=== PATIENT | female | born 1955 | race Caucasian/White ===

== ENCOUNTER 2017-11-15 12:56 | Outpatient (CLI) | payer OTHER ==
--- NOTE | 2017-11-15 17:34 | MRI ---
THORACIC SPINE MRI WITHOUT CONTRAST: Date: 11/15/17 HISTORY: Thoracolumbar fracture with pain. Follow-up. Fracture occurred 2 years ago. Multiple falls. COMPARISON: None. TECHNIQUE: Thoracic spine MRI is performed without intravenous Gadolinium administration. Multisequential, multi planar imaging is performed. FINDINGS: Appropriate T1 marrow signal intensity of thoracic vertebra. Thoracic spine vertebral body height is maintained. There is no evidence of an acute thoracic spine fracture. No evidence of a remote thoraci c spine fracture. There is mild loss of vertebral body height at L1 suggesting a chronic fracture. Mild retropulsion. Appropriate signal intensity of the visualized mediastinal structures and lung parenchyma. Appropriat e signal intensity of the visualized solid organs. The thoracic cord has an overall normal size and signal intensity. No cord expansion. No cord malacia or atrophy. No T2 hyperintensity of the cord. Conus medullaris terminates beyond the upper aspect of L1. Throughout the thoracic spine, there is no high grade central canal stenosis. Neural foramina are pat ent. IMPRESSION: 1. No acute or remote thoracic spine fracture. 2. Mild compression fracture involving L1, chronic. POS: [facility]
== END 2017-11-15 12:57 | disposition home or self-care (01) ==
LOC: TBSIIMAG 12:56
PROVIDERS: ATTEND Neurological Surgery
DX: S22.009A Unspecified fracture of unspecified thoracic vertebra, initial encounter for closed fracture (principal); S32.009A Unspecified fracture of unspecified lumbar vertebra, initial encounter for closed fracture
CPT/HCPCS: 72146

== ENCOUNTER 2018-02-01 07:57 | Outpatient (CLI) | payer OTHER ==
[2018-02-01] MEDS ORDERED: ISOVUE-370 76%-LOCM 1 ML ONE (11:09)
== END 2018-02-01 07:58 | disposition home or self-care (01) ==
LOC: BICCT 07:57
PROVIDERS: ATTEND Surgery
DX: I72.8 Aneurysm of other specified arteries (principal); K76.0 Fatty (change of) liver, not elsewhere classified; K86.89 Other specified diseases of pancreas
CPT/HCPCS: 74175

== ENCOUNTER 2018-04-09 07:54 | Day surgery (SDC) | payer OTHER ==
[2018-04-06 12:04] VITALS: BMI 18.1
[2018-04-09 08:56] LABS: Hemoglobin 14.9 g/dL (12.0-16.0); Mean Corpuscular HGB CONC 33.5 g/dL (32.0-36.0); Mean Corpuscular Hemoglobin 34.5 pg (27.0-31.0); Mean Platelet Volume 6.8 fL (7.4-10.4); Platelet Count 333 thou/uL (130-400); RBC Distribution Width 10.9 % (11.5-14.5); Red Blood Cell (RBC) Count 4.31 mill/uL (4.20-5.40); White Blood Cell (WBC) Count 6.2 thou/uL (4.8-10.8)
[2018-04-09] MEDS ORDERED: CEFAZOLIN/Water 2 GM/20 ML SYRINGE ONE (09:06)
[2018-04-09 09:29] LABS: Anion Gap 20 mmol/L (10-20); BUN (Urea Nitrogen) 9 mg/dL (9.8-20.1); Calc. Creatinine Clearance 68 mL/min (70-130); Calcium 9.6 mg/dL (7.8-10.44); Carbon Dioxide 22 mmol/L (23-31); Chloride 101 mmol/L (98-107); Estimated GFR-MDRD 82; Glucose 108 mg/dL (80-115); Potassium 4.1 mmol/L (3.5-5.1); Sodium 139 mmol/L (136-145)
[2018-04-09] MEDS ORDERED: Sodium Chloride 0.9% 10 ML ONE (09:50)
[2018-04-09] MEDS ORDERED: Fentanyl 250 MCG/5 ML VIAL ONE (09:55)
[2018-04-09] MEDS ORDERED: SUGAMMADEX SODIUM 200 MG/2 ML VIAL ONE (11:06)
--- NOTE | 2018-04-09 11:09 | OP ---
DATE OF PROCEDURE: 04/09/2018 SURGEON: Zachary Elias M.D. TREATMENT TECHNICIAN: Nehemiah Reyes PA-C PROCEDURES: Anterior cervical discectomy C5-6 and C6-7, interbody arthrodesis, intravertebral biomec hanical device, local morselized autograft, demineralized bone matrix, anterior titanium instrumentat ion C5-6 and C6-7. PROCEDURE IN DETAIL: The patient was brought to the operating room and intubated. She was positione d supine, head in modest extension on a gel-filled donut. Incision was made in the right precervical area and dissecting medial to the sternocleidomastoid muscle. We identified the anterior cervical s pine and our level was confirmed by x-ray. We debrided anterior osteophytes, placed distraction acro ss the disc spaces, and completely decompressed the intravertebral discs. The bony endplates were de corticated for the purpose of arthrodesis and appropriately sized intravertebral biomechanical PEEK d evice was brought into the field, filled with demineralized bone matrix and local morselized autograf t, and tapped into place securely at C5-6 and C6-7. Next, an anterior plate was brought into the fie ld and secured to C5, C6, and C7 using two 14 mm screws at each level. The wound was then extensivel y irrigated, immaculate hemostasis was secured, and the wound was closed in anatomic layers.
[2018-04-09] MEDS ORDERED: Fentanyl 100 MCG/2 ML VIAL ONE ×2 (11:26→11:45)
[2018-04-09] MEDS ORDERED: Morphine 4 MG/ML VIAL ONE ×2 (11:47→13:09)
[2018-04-09] MEDS ORDERED: HYDROcodone/Acetaminophen 5/325 mg Tablet ONE (14:18)
--- NOTE | 2018-04-09 16:01 | EKG ---
Test Reason : PREOP Blood Pressure : / mmHG Vent. Rate : 084 BPM Atrial Rate : 084 BPM P-R Int : 160 ms QRS Dur : 070 ms QT Int : 426 ms P-R-T Axes : 070 -30 041 degrees QTc Int : 503 ms Normal sinus rhythm Left axis deviation Prolonged QT Inferior infarct , age undetermined cannot be excluded Abnormal ECG Confirmed by REESE LIZ ([id number]) on 04/09/2018 4:00:37 PM Referred By: BOB Confirmed By:REESE LIZ
== END 2018-04-09 16:05 | disposition home or self-care (01) ==
LOC: SDC 07:54
PROVIDERS: ATTEND Neurological Surgery
PROC: 0RT30ZZ Resection of Cervical Vertebral Disc, Open Approach (ICD-10-PCS; principal; 2018-04-09)
PROC: 0RG20A0 Fusion of 2 or more Cervical Vertebral Joints with Interbody Fusion Device, Anterior Approach, Anterior Column, Open Approach (ICD-10-PCS; principal; 2018-04-09)
DX: M47.12 Other spondylosis with myelopathy, cervical region (principal); D64.9 Anemia, unspecified; E07.9 Disorder of thyroid, unspecified; Z79.899 Other long term (current) drug therapy
CPT/HCPCS: 36415; 76001; 80048; 85027; 93005; 93010; 96374; A4216; C1713; C1776; J2270; J3010; J3490

== ENCOUNTER 2018-04-29 15:10 | Inpatient (IN) | payer OTHER ==
[2018-04-29] MEDS ORDERED: Ondansetron HCl/PF 4 MG/2 ML Vial IVP PRN (16:43)
[2018-04-29] MEDS ORDERED: Loratadine 10 MG TAB PO PRN (16:43)
[2018-04-29] MEDS ORDERED: Mag-Al 1200 mg/1200 mg/30 ML UDCUP PO PRN (16:43)
[2018-04-29] MEDS ORDERED: Acetaminophen 650 MG Suppository PR PRN (16:43)
[2018-04-29] MEDS ORDERED: Lorazepam 2 MG/ML VIAL SLOW IVP PRN (16:43)
[2018-04-29] MEDS ORDERED: Diabetic Tussin 200 MG/10 ML UDCUP PO PRN (16:43)
[2018-04-29] MEDS ORDERED: Bisacodyl 5 MG TAB PO PRN (16:43)
[2018-04-29] MEDS ORDERED: Senokot 8.6 MG TAB PO PRN (16:43)
[2018-04-29] MEDS ORDERED: Acetaminophen 325 MG TAB PO PRN (16:43)
[2018-04-29] MEDS ORDERED: Benzonatate 100 MG CAP PO PRN (16:43)
[2018-04-29] MEDS ORDERED: cloNIDine 0.1 MG TAB PO PRN (16:43)
[2018-04-29] MEDS ORDERED: hydrALAZINE 20 MG/ML VIAL SLOW IVP PRN (16:43)
[2018-04-29] MEDS ORDERED: Calcium Carbonate 500 MG ChewTAB PO PRN (16:43)
[2018-04-29] MEDS ORDERED: cefTRIAXone\\ROCEPHIN 1 GM in Sodium Chloride 0.9% 100 ML IVPB SCH (16:45)
--- NOTE | 2018-04-29 16:45 | CON ---
DATE OF CONSULTATION: 04/29/2018 Consult from [facility]. REASON FOR CONSULTATION: Pancreatitis, pneumatosis intestinalis. 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 She was set for Dr. Villalta to address th at at [facility] in [place]. She now presents with recurrent pancreatitis. Pain over the last 3 days, most ly epigastric, it is more right-sided abdominal too now, her main pain is epigastric. PAST MEDICAL HISTORY: Cervical myelopathy, hypothyroidism, Sjogren's syndrome with lupus, pancreatit is. PAST SURGICAL HISTORY: ACDF, cataract, cardiac ablation, lung biopsy. MEDICINES: See list. ALLERGIES: No known drug allergies. SOCIAL HISTORY: She is a daily heavier drinker and was nonsmoker. REVIEW OF SYSTEMS: Otherwise, negative. PHYSICAL EXAMINATION: VITAL SIGNS: Blood pressure is 123/75, her pulse is 80, respirations are 12. She is afebrile. HEENT: Sclerae are anicteric. Oropharynx clear. NECK: No lymphadenopathy. CHEST: Clear. HEART: Regular rate and rhythm. ABDOMEN: Soft. She is tender epigastric with localized guarding. She is also tender in the right a bdomen without guarding. She has a hematoma, ecchymoses, it is resolving in the right rectus sheath. LABORATORY: White blood cell count is 8, hemoglobin 14, platelet count is 422. She has 2 bands. So dium 137, potassium 3.6, creatinine 0.63. Lactic acid 2.7. Her LFTs are otherwise normal except for alkaline phosphatase of 253, lipase 144. LABORATORY AND X-RAY FINDINGS: CT scan shows findings of acute pancreatitis, pseudoaneurysm unchange d, pneumatosis of the right colon without perforation or free air. ASSESSMENT: 1. Recurrent on chronic pancreatitis with known pseudoaneurysm. 2. Pneumatosis of the cecum. Likely related to the retroperitoneal inflammatory process, but rule o ut ischemic colon. PLAN: Admit to hospital for fluid hydration, n.p.o. She does not have peritonitis at this time. I suspect pneumatosis is related to the pancreatitis, but we will follow.
[2018-04-29] MEDS ORDERED: Pantoprazole 40 MG VIAL IVP SCH (17:00)
[2018-04-29] MEDS ORDERED: Morphine 4 MG/ML VIAL ONE (17:03)
[2018-04-29 18:04] LABS: Lactic Acid 1.2 mmol/L (0.5-2.2)
--- NOTE | 2018-04-29 18:12 | HP ---
DATE OF ADMISSION: 04/29/2018 PRIMARY CARE PHYSICIAN: Kesha Cr D.O. [place]IMARY [place] TAX AUDITOR: Dieter Russo M.D. CHIEF COMPLAINT: Abdominal pain, nausea and vomiting of 5 days' duration. HISTORY OF PRESENT ILLNESS: Ms. Stenier is a very pleasant 62-year-old female with known history o f chronic pancreatitis due to history of alcohol abuse, currently under the care of Dr. Rusos and gabi yanes of pancreatic pseudocyst and pseudoaneurysm who presented to the ER at an outside hospital for th e above-mentioned complaint. History is mainly obtained by the patient herself and electronic medica l records have been reviewed. Ms. Steiner reports that she gets acute pancreatitis attacks quite often as much as every 6-7 weeks . She describes them as significant abdominal pain, nausea associated with vomiting and lasting for about 3 or 4 days. She usually self treats herself by going on a clear liquid diet and increasing he r fluid intake. At this time, she started to have these symptoms 5 days ago and despite doing the cl ear liquid diet, her symptoms got worse. She had severe abdominal pain, worsening 2 days ago and jose c ntually when the symptoms did not resolve, she presented to the [place] ER. She denies any dysu nevaeh, frequency or urgency. She denies any dizziness, lightheadedness, fever or chills. She denies a ny diarrhea. The pain she describes as a 10/10 in intensity and starting from her periumbilical shelia on going to her back. She reports that she has an upcoming procedure for embolization of her pancreatic aneurysm in [place] by Dr. Villalta this coming Monday. Upon presentation to the ER, she was tachycardic with a heart rate of 120, otherwise stable. She und erwent a CT scan of her abdomen and pelvis, which confirmed the finding of acute pancreatitis as well as question of cecal pneumatosis concerning for ischemic bowel. Her lipase was found to be elevated to 144, alkaline phosphatase elevated to 253 and she had mild metabolic acidosis with bicarbonate of 18. Her urinalysis had multiple WBCs, bacteria and leukocyte esterase or nitrite. She has received Zosyn and metronidazole in the outside emergency room along with pain medication and nausea medicati ons. She is now being admitted for further workup and treatment. She is hemodynamically stable. PAST MEDICAL HISTORY: 1. Chronic pancreatitis secondary to alcohol abuse. 2. History of alcohol abuse, currently abstinent. 3. History of duodenitis and gastroesophageal reflux disease. 4. Bipolar illness. 5. Sjogren's disease. 6. Question of lupus. 7. Hypothyroidism. 8. Microcytic anemia. 9. Vitamin D deficiency. 10. Chronic obstructive pulmonary disease. 11. Insomnia. PAST SURGICAL HISTORY: Bilateral cataract removal and lens replacement in 2014, bilateral decompress ion of her eyes in 2013, cardiac ablation in 1995, left eye surgery to remove an abscess as well as s inus surgery in 2015 and lung biopsy in 2014. FAMILY HISTORY: Both parents are . She has a family history of heart disease in her mom. SOCIAL HISTORY: She is a nonsmoker. No history of drug abuse. She used to drink 5-6 glasses of win e, but currently abstinent. She is living with a friend. Currently, unemployed. ALLERGIES: No known medication allergies. CURRENT MEDICATIONS: As listed in the ER record and further need to be confirm, Effexor 75 mg unknow n dose, Nexium 40 mg daily, Lamictal 200 mg in the morning, promethazine 12.5 mg every 6 hours as nee ded, levothyroxine 50 mcg daily, trazodone 100 mg at bedtime, Ultram p.r.n., Plaquenil 200 mg daily. REVIEW OF SYSTEMS: A 12-point review of systems was done. It is negative except for those mentioned in the history and physical. PHYSICAL EXAMINATION: VITAL SIGNS: Upon presentation, blood pressure 115/68, pulse of 120, respirations 18, temperature 97 .6, saturating 96% on room air. GENERAL: She does appear pale and somewhat jaundiced, otherwise in no acute distress. Awake, alert and oriented x3. HEENT: Mucous membranes are slightly dry. No oropharyngeal exudate or erythema. Head is normocepha lic, atraumatic. Pupils are equal and reactive to light and accommodation. Extraocular movements ar e intact. NECK: Supple without any lymphadenopathy, JVD or bruit. CHEST: Clear to auscultation without any wheezing, rales or rhonchi. CARDIOVASCULAR: Rate and rhythm are regular without any murmur, rubs or gallops. ABDOMEN: Tender to palpation diffusely, but more pronounced in the periumbilical region. She is not iced to have ecchymosis mid back and left lateral back with some tenderness on palpation. EXTREMITIES: Free of any cyanosis, clubbing or edema. NEUROLOGIC: Nonfocal. SKIN: Shows various bruises in various healing stages, more pronounced in her shoulder and lower ext remities. The patient denies any recent falls. PSYCHIATRIC: Normal affect. LABORATORY DATA: Her CBC shows WBCs 8.7 without any left shift, hemoglobin 14, platelet count of 422 ,000. Serum chemistries show bicarbonate of 18, blood sugar 121, lactic acid 2.7, alkaline phosphata se 253 with normal LFTs otherwise. Lipase is 144. Urinalysis positive nitrite, leukocyte esterase, multiple wbc's and bacteria. IMAGING: CT scan of the abdomen and pelvis shows diffuse fatty infiltration of the liver and hypoden sity involving the pancreatic head with a focus of increased density compatible with pseudoaneurysm. There is fat stranding around the pancreatic head and uncinate process as well as in the portion of the duodenum with pancreatic ductal dilatation. Pancreatic calcifications are also seen. There is s ome cecal pneumatosis raising the possibility of ischemic bowel. IMPRESSION AND PLAN: 1. Acute on chronic pancreatitis. The patient has had repeated episodes of same and unfortunately w as not able to control her symptoms as an outpatient. She will be admitted to the hospital for IV fl uid hydration as well as will be kept n.p.o. for now. Currently, she is hemodynamically stable, but does show signs of hemoconcentration. She is exhibiting Haider Canchola's sign of acute pancreatitis. I t may represent retroperitoneal bleeding. We will monitor H and H closely and avoid any pharmacologi [place] deep venous thrombosis prophylaxis with heparin or similar products. We will consult her gastroe nterologist, Dr. Russo in the morning. We will repeat lipase and lactic acid. Because of the severit y of symptoms and possibility of ischemic bowel, we will continue with Zosyn for now. 2. Cecal pneumatosis. General Surgery, Dr. Hebert was consulted from the emergency room and has ev aluated the patient. According to his recommendations, this possibly may represent pneumatosis relat ed to pancreatitis. She will be monitored clinically with frequent abdominal examination as well as General Surgery followup and GI consultation. Empiric IV antibiotics as above. 3. Urinary tract infection. We will send urine for culture and continue with Zosyn, which will prov porter adequate coverage for any gram negative organisms of urinary tract infection. 4. History of lupus and Sjogren's syndrome. I am not aware when were these diagnosed and by what kayla raymond. At this time, we will hold her home medications as she will be n.p.o. 5. Hypothyroidism. Resume Synthroid once she is able to take oral medications. 6. History of bipolar illness, currently stable affect. Resume home medications once she is cleared to take oral medications. 7. History of duodenitis and peptic ulcer disease. We will start her on IV Protonix for now. 8. Microcytic anemia, currently hemoconcentrated, but suspect that she has normal values. Repeat H and H on a regular basis. 9. Deep venous thrombosis and gastrointestinal prophylaxis. We will use sequential compression juana angel and proton pump inhibitors while she is here. 10. Code status, full code, discussed with the patient. DISPOSITION: Ms. Steiner is currently being admitted for acute on chronic pancreatitis with the po ssibility of ischemic bowel. Currently, she is hemodynamically stable. She will need at least 3-4 m idnight for full recovery. Further management will depend upon her clinical course.
[2018-04-29 19:24] VITALS: BMI 19.3
[2018-04-29] MEDS: Sodium Chloride 0.9% 1,000 ML IV SCH ×2 (19:32→23:26)
[2018-04-29] MEDS: Piperacillin/Tazobactam 3.375 GM in Sodium Chloride 0.9% 100 ML IVPB SCH ×2 (19:33→23:27)
[2018-04-29] MEDS: Morphine 4 MG/ML VIAL SLOW IVP PRN ×2 (20:29→23:28)
[2018-04-30] MEDS: Morphine 4 MG/ML VIAL SLOW IVP PRN ×4 (02:50→20:41)
[2018-04-30] MEDS: Piperacillin/Tazobactam 3.375 GM in Sodium Chloride 0.9% 100 ML IVPB SCH ×3 (04:56→17:27)
[2018-04-30] MEDS: Sodium Chloride 0.9% 1,000 ML IV SCH ×4 (04:57→23:00)
[2018-04-30 05:44] LABS: #Eosinphils 0.2 thou/uL (0.0-0.7); #Lymphocytes 0.9 thou/uL (1.20-3.40); #Monocytes 0.6 thou/uL (0.11-0.59); #Neutrophils 3.8 thou/uL (1.40-6.50); %Basophils 0.6 % (0.0-1.0); %Eosinophils 3.1 % (0.0-10.0); %Lymphocytes 16.8 % (21.0-51.0); %Monocytes 11.1 % (0.0-10.0); %Neutrophils 68.5 % (42.0-75.0); Mean Corpuscular HGB CONC 32.6 g/dL (32.0-36.0); Mean Corpuscular Hemoglobin 34.7 pg (27.0-31.0); Mean Platelet Volume 7.7 fL (7.4-10.4); Platelet Count 309 thou/uL (130-400); RBC Distribution Width 11.6 % (11.5-14.5); Red Blood Cell (RBC) Count 3.17 mill/uL (4.20-5.40); White Blood Cell (WBC) Count 5.5 thou/uL (4.8-10.8)
[2018-04-30 05:55] LABS: Anion Gap 12 mmol/L (10-20); BUN (Urea Nitrogen) 9 mg/dL (9.8-20.1); Calc. Creatinine Clearance 83 mL/min (70-130); Calcium 8.3 mg/dL (7.8-10.44); Carbon Dioxide 21 mmol/L (23-31); Chloride 110 mmol/L (98-107); Estimated GFR-MDRD Greater than 90; Glucose 93 mg/dL (80-115); Lipase 49 U/L (8-78); Potassium 3.3 mmol/L (3.5-5.1); Sodium 140 mmol/L (136-145)
[2018-04-30] MEDS: Meperidine HCl/PF 25 MG/ML VIAL SLOW IVP PRN ×2 (08:35→17:28)
[2018-04-30] MEDS ORDERED: PROVENTIL INHALER 6.7 G (200 INHALATIONS) INH PRN (08:49)
[2018-04-30] MEDS ORDERED: traZODone HCl 50 MG TAB PO PRN (08:49)
[2018-04-30] MEDS ORDERED: Pantoprazole 40 MG VIAL IVP SCH (09:00)
[2018-04-30] MEDS ORDERED: Ergocalciferol 1.25 MG(50,000 UNITS) CAP PO SCH ×2 (09:00)
[2018-04-30] MEDS ORDERED: Non-Formulary Item 1 EACH (Esomeprazole Magnesium [Nexium] 40 MG) PO SCH (09:00)
[2018-04-30] MEDS ORDERED: Levothyroxine Sodium 50 MCG TAB PO SCH (09:00)
[2018-04-30] MEDS ORDERED: Enoxaparin Sodium 40 MG/0.4 ML SYRINGE SC SCH (09:00)
[2018-04-30] MEDS ORDERED: Non-Formulary Item 1 EACH (Mometasone Furoate [Asmanex] 220 MCG) IH SCH (09:00)
[2018-04-30] MEDS: Venlafaxine HCl XR 75 MG CAP PO SCH (09:20)
[2018-04-30] MEDS: Venlafaxine HCl XR 150 MG CAP PO SCH (09:20)
[2018-04-30] MEDS: Folic Acid 1 MG TAB PO SCH (09:21)
[2018-04-30] MEDS: Multivitamin W/ Minerals 1 TAB PO SCH (09:21)
--- NOTE | 2018-04-30 13:29 | PDOC.PN ---
- Subjective Encounter Start Date: 04/30/18 Encounter Start Time: 13:28 Subjective: c/o considerable pain despite pain meds.no nausea/vomiting -: feels hungry.very tearful -: reports that she is still drinking 3-4 glasses of wine daily at home - Objective Resuscitation Status: Resuscitation Status FULL:Full Resuscitation MAR Reviewed: Yes Vital Signs & Weight: Vital Signs (12 hours) Temp Pulse Resp BP Pulse Ox 04/30/18 08:00 95 04/30/18 07:49 97.6 F 94 20 153/73 H 95 Weight Weight 123 lb 4 oz I&O: 04/29/18 04/30/18 05/01/18 06:59 06:59 06:59 Intake Total 1550 Balance 1550 Result Diagrams: 04/30/18 04:07 04/30/18 04:07 Additional Labs: Laboratory Tests 04/29/18 04/29/18 04/29/18 12:05 12:05 12:05 Hgb 14.0 Lactic Acid 2.7 H Lipase 144 H 04/29/18 04/30/18 04/30/18 17:12 04:07 04:07 Hgb 11.0 L Lactic Acid 1.2 Lipase 49 Phys Exam - Physical Examination Constitutional: NAD crying HEENT: PERRLA, moist MMs, sclera anicteric, oral pharynx no lesions Neck: no nodes, no JVD, supple, full ROM Respiratory: no wheezing, no rales, no rhonchi, clear to auscultation bilateral Cardiovascular: RRR, no significant murmur, no rub Gastrointestinal: soft (very tender to palpation.R paraspinal fading bruise), no distention, positive bowel sounds Musculoskeletal: no edema, pulses present Neurological: non-focal, normal sensation, moves all 4 limbs Psychiatric: normal affect, A&O x 3 Deviation from normal: multiple brusies in varous stages of healing ,face,leg, back Dx/Plan (1) Acute on chronic pancreatitis Code(s): K85.90 - ACUTE PANCREATITIS WITHOUT NECROSIS OR INFECTION, UNSP; K86.1 - OTHER CHRONIC PANCREATITIS Status: Acute (2) UTI (urinary tract infection) Status: Acute (3) Pneumatosis coli Code(s): K63.89 - OTHER SPECIFIED DISEASES OF INTESTINE Status: Acute (4) ETOH abuse Code(s): F10.10 - ALCOHOL ABUSE, UNCOMPLICATED Status: Acute (5) Bipolar 1 disorder Code(s): F31.9 - BIPOLAR DISORDER, UNSPECIFIED Status: Chronic (6) Hypothyroid Code(s): E03.9 - HYPOTHYROIDISM, UNSPECIFIED Status: Chronic - Plan out of bed/ambulate, DVT proph w/SCDs Start CLD..cont IVF and pain meds. -: GI recs requested -: Embolization for pancreatic psedoaneurysm on monday in [place] -: Counselled extensively against Alcohal intake -: easy bruising likley due to chr liver disease from chr alcohal abuse * .monitor H/H. drop likely dilutional. no changes in bruising/no new bruises Review of Systems - Review of Systems Constitutional: weakness, malaise. negative: fever, chills, sweats, other Respiratory: negative: Cough, Dry, Shortness of Breath, Hemoptysis, SOB with Excertion, Pleuritic Pain, Sputum, Wheezing Cardiovascular: negative: chest pain, palpitations, orthopnea, paroxysmal nocturnal dyspnea, edema, light headedness, other Gastrointestinal: Abdominal Pain. negative: Nausea, Vomiting, Diarrhea, Constipation, Melena, Hematochezia, Other Genitourinary: negative: Dysuria, Frequency, Incontinence, Hematuria, Retention , Other Musculoskeletal: negative: Neck Pain, Shoulder Pain, Arm Pain, Back Pain, Hand Pain, Leg Pain, Foot Pain, Other Neurological: negative: Weakness, Numbness, Incoordination, Change in Speech, Confusion, Seizures, Other - Medications/Allergies Allergies/Adverse Reactions: Allergies Allergy/AdvReac Type Severity Reaction Status Date / Time No Known Allergies Allergy Verified 04/06/18 12:01 Medications: Current Medications Acetaminophen (Tylenol) 650 mg TX Q4H PRN PRN Reason: Headache/Fever or Pain Acetaminophen (Tylenol) 650 mg PO Q4H PRN PRN Reason: Headache/Fever or Pain Al Hydroxide/Mg Hydroxide (Maalox) 30 ml PO Q6H PRN PRN Reason: Heartburn or Indigestion Albuterol Sulfate (Proventil Hfa) 2 puff INH Q4H PRN PRN Reason: SOB &/or Wheezing Benzonatate (Tessalon) 100 mg PO Q4H PRN PRN Reason: Cough Bisacodyl (Dulcolax) 10 mg PO DAILYPRN PRN PRN Reason: Constipation Calcium Carbonate (Tums) 1,000 mg PO Q4H PRN PRN Reason: Heartburn or Indigestion Clonidine (Catapres) 0.1 mg PO Q4H PRN PRN Reason: Systolic BP > 160 Ergocalciferol (Drisdol) 1.25 mg PO Q7DAYS [facility] Last Admin: 04/30/18 12:21 Dose: 1.25 mg Folic Acid (Folvite) 1 mg PO DAILY [facility] Last Admin: 04/30/18 09:21 Dose: 1 mg Guaifenesin (Robitussin Sf) 200 mg PO Q4H PRN PRN Reason: Cough Hydralazine HCl (Apresoline) 10 mg SLOW IVP Q4H PRN PRN Reason: Systolic BP > 170 Sodium Chloride (Normal Saline 0.9%) 1,000 mls @ 150 mls/hr IV .Q6H40M [facility] Last Admin: 04/30/18 12:21 Dose: 1,000 mls Piperacillin Sod/Tazobactam (Sod 3.375 gm/ Sodium Chloride) 100 mls @ 200 mls/ hr IVPB Q6HR [facility] Last Admin: 04/30/18 12:19 Dose: 100 mls Iron/Minerals/Multivitamins (Theragran M) 1 tab PO DAILY [facility] Last Admin: 04/30/18 09:21 Dose: 1 tab Lamotrigine (Lamictal) 200 mg PO HS [facility] Levothyroxine Sodium (Synthroid) 50 mcg PO 0600 [facility] Loratadine (Claritin) 10 mg PO DAILYPRN PRN PRN Reason: Sinus Symptoms Lorazepam (Ativan) 1 mg SLOW IVP Q4H PRN PRN Reason: Anxiety/Agitation Meperidine HCl (Demerol) 12.5 mg SLOW IVP Q4H PRN PRN Reason: Pain Last Admin: 04/30/18 08:35 Dose: 12.5 mg Mometasone Furoate (Asmanex Twisthaler) 1 puff INH BID-RT [facility] Morphine Sulfate (Morphine) 2 mg SLOW IVP Q2H PRN PRN Reason: severe pain Morphine Sulfate (Morphine) 4 mg SLOW IVP Q3H PRN PRN Reason: .SEVERE PAIN 2ND LINE Last Admin: 04/30/18 12:21 Dose: 4 mg Ondansetron HCl (Zofran) 4 mg IVP Q6H PRN PRN Reason: Nausea/Vomiting Pantoprazole Sodium (Protonix) 40 mg PO DAILY [facility] Last Admin: 04/30/18 11:41 Dose: Not Given Senna (Senokot) 2 tab PO HSPRN PRN PRN Reason: Constipation Sodium Chloride (Flush - Normal Saline) 10 ml IVF Q12HR [facility] Last Admin: 04/30/18 09:21 Dose: Not Given Sodium Chloride (Flush - Normal Saline) 10 ml IVF PRN PRN PRN Reason: Saline Flush Trazodone HCl (Desyrel) 50 mg PO PRN PRN PRN Reason: Insomnia Venlafaxine HCl (Effexor Xr) 75 mg PO DAILY [facility] Last Admin: 04/30/18 09:20 Dose: 75 mg Venlafaxine HCl (Effexor Xr) 150 mg PO DAILY [facility] Last Admin: 04/30/18 09:20 Dose: 150 mg
[2018-04-30 14:06] LABS: ALT (SGPT) 15 U/L (8-55); AST (SGOT) 18 U/L (5-34); Albumin 2.9 g/dL (3.4-4.8); Alkaline Phosphatase 188 U/L (40-150); Bilirubin, Direct 0.4 mg/dL (0.1-0.3); Bilirubin, Total 0.7 mg/dL (0.2-1.2); Protein, Total 5.7 g/dL (6.0-8.3)
[2018-04-30] MEDS: Mometasone Furoate 120 PUFF 220 MCG INH SCH (18:49)
[2018-04-30] MEDS: lamoTRIgine 100 MG TAB PO SCH (20:34)
[2018-04-30] MEDS ORDERED: LAMOTRIGINE 200 MG PO SCH (21:00)
--- NOTE | 2018-04-30 23:40 | CON ---
DATE OF CONSULTATION: 04/30/2018 GASTROENTEROLOGY CONSULTATION NOTE CHIEF COMPLAINT: Abdominal pain. HISTORY OF PRESENT ILLNESS: Ms. Steiner is a 62-year-old woman who developed epigastric sharp to a tayo abdominal pain to the right upper quadrant radiates to her back about 5 or 6 days ago. She sta jg this pain has been similar to her previous acute pancreatitis attacks. Lately, she normally just put herself on a clear liquid diet and then takes some leftover pain medication; however, she did no t have any pain medicines, so she came in the emergency room for further care. She also reports an a dditional slightly different pain which is an aching in the right lower quadrant but is much less sev ere. She has had no diarrhea or constipation or blood in the stool. She did have some nausea and vo miting after the onset of the epigastric pain, but this is doing better now. She started clear liqui d diet today, which she has tolerated, but has had some nausea with it. She has had no fever. Her p ain is improving. PAST MEDICAL HISTORY: Significant for recurrent acute on chronic pancreatitis likely alcohol related . She has continued to drink. She has a pancreatic head pseudoaneurysm, for which she has seen surg ical service in [facility] in [place]. Dr. Damien Villalta who plans to perform embol ization of the pancreatic head pseudoaneurysm, which was originally scheduled for this coming Monday. She did note development of a hematoma around her umbilicus a couple of months ago. Lupus for whic h she has taken azathioprine in the past, depression, anxiety, asthma, arthritis, thyroid disease, at rial fibrillation, alcohol abuse, bipolar disorder, Sjogren syndrome, COPD. PAST SURGICAL HISTORY: Cardiac catheterization, colonoscopy around 10 years ago. FAMILY HISTORY: Negative for GI malignancies. SOCIAL HISTORY: She continues to drink a few glasses of wine per day. She has never been a smoker. She had past history of cocaine use. ALLERGIES: No known drug allergies. MEDICATIONS: Prior to admission, Nexium, Lamictal, Effexor, levothyroxine, promethazine, trazodone, Plaquenil. REVIEW OF SYSTEMS: Negative x10 systems reviewed except as stated in the history of present illness. PHYSICAL EXAMINATION: VITAL SIGNS: Temperature 97.6, pulse 94, blood pressure 153/73. GENERAL: She is in no acute distress, alert and oriented x3. HEENT: Eyes have no scleral icterus. Oropharynx is clear without lesions. NECK: No cervical or supraclavicular lymphadenopathy. LUNGS: Clear to auscultation bilaterally. HEART: Regular rate and rhythm without murmur. ABDOMEN: Soft. She has tenderness in the epigastric to right upper quadrant. Bowel sounds are pres ent. EXTREMITIES: No lower extremity edema. LABORATORY DATA: White blood cell count 5.5, hemoglobin 11.0, platelets 309. INR 1.0. Creatinine 0 .61, bilirubin 0.7, AST 18, ALT 15, alkaline phosphatase 188, albumin 2.9, lipase was 144 on admissio n, down to 49 today. IMPRESSION: 1. Acute on chronic pancreatitis secondary to alcohol abuse. She has ongoing alcohol use. She has mild pancreatitis now without secondary organ failure and her pancreatic enzymes are normal. She did have mild stranding around the pancreatic head noted on CT scan consistent with an acute on chronic pancreatitis. She also was noted to have calcifications within the pancreas. 3. Pancreatic head pseudoaneurysm. She was originally planned for embolization of the pseudoaneurys m by surgery in [place] planned for Monday. 3. CT scan of the abdomen and pelvis showing pneumatosis in the cecum. She does report new right lo wer quadrant pain that started last week. She has had no diarrhea or constipation or blood in the st ool. A mild ischemic colitis has to be considered. Given if she does have ischemic changes confined to the cecum or right colon and this does indicate a potentially higher risk lesion for recurrent is chemia related to the superior mesenteric artery. 4. Alcohol abuse. There is no obvious evidence of cirrhosis. Her platelets are normal. Her INR is normal. Her liver tests other than alkaline phosphatase have been normal. RECOMMENDATIONS: She has been advanced to a clear liquid diet today. I will continue a clear liquid diet for now. Given that there is a question of pneumatosis and potential for right-sided ischemic colitis this diagnosis should be confirmed considering that she is planned for vascular embolization for her pancreatic pseudoaneurysm at the end of the week. If she is found to have a right-sided ceca l ischemic colitis, then further imaging of the mesenteric and celiac arterial system may be indicate d prior to further vascular interventions in this area. Her last colonoscopy was 10 years ago. I wi ll recommend colonoscopy when she is able to tolerate a bowel prep. We will keep her on a clear liqu id diet until then.
[2018-05-01] MEDS: Piperacillin/Tazobactam 3.375 GM in Sodium Chloride 0.9% 100 ML IVPB SCH ×5 (00:08→23:08)
[2018-05-01] MEDS: Morphine 4 MG/ML VIAL SLOW IVP PRN ×4 (00:08→20:29)
[2018-05-01] MEDS: Sodium Chloride 0.9% 1,000 ML IV SCH ×4 (02:00→23:18)
[2018-05-01 04:57] LABS: INR-International Normal Ratio 1.2; PTT 42.4 SEC (22.9-36.1); Prothrombin Time 15.4 SEC (12.0-14.7)
[2018-05-01] MEDS: Levothyroxine Sodium 50 MCG TAB PO SCH (05:14)
[2018-05-01] MEDS: Mometasone Furoate 120 PUFF 220 MCG INH SCH ×2 (06:42→18:11)
[2018-05-01] MEDS: Venlafaxine HCl XR 150 MG CAP PO SCH (07:51)
[2018-05-01] MEDS: Venlafaxine HCl XR 75 MG CAP PO SCH (07:51)
[2018-05-01] MEDS: Multivitamin W/ Minerals 1 TAB PO SCH (07:51)
[2018-05-01] MEDS: Folic Acid 1 MG TAB PO SCH (07:51)
--- NOTE | 2018-05-01 14:31 | PDOC.PN ---
- Subjective Encounter Start Date: 05/01/18 Encounter Start Time: 14:30 Subjective: feels slightly better.abd pain still there but feels she can eat more -: no nausea/vomiting/diarrhea - Objective Resuscitation Status: Resuscitation Status FULL:Full Resuscitation MAR Reviewed: Yes Vital Signs & Weight: Vital Signs (12 hours) Temp Pulse Resp BP Pulse Ox 05/01/18 08:25 98.4 F 83 16 143/94 H 94 L 05/01/18 08:00 92 L 05/01/18 04:00 98.4 F 88 20 146/83 H 92 L Weight Weight 123 lb 4 oz I&O: 04/30/18 05/01/18 05/02/18 06:59 06:59 06:59 Intake Total 1550 2100 240 Output Total 800 Balance 1550 1300 240 Result Diagrams: 04/30/18 04:07 04/30/18 04:07 Additional Labs: Microbiology 04/30/18 02:55 Urine voided Urine Culture - Preliminary NO GROWTH AT 12 HOURS Laboratory Tests 05/01/18 03:23 PT 15.4 H INR 1.2 APTT 42.4 H Phys Exam - Physical Examination Constitutional: NAD HEENT: PERRLA, moist MMs, sclera anicteric, oral pharynx no lesions Neck: no nodes, no JVD, supple, full ROM Respiratory: no wheezing, no rales, no rhonchi, clear to auscultation bilateral Cardiovascular: RRR, no significant murmur Gastrointestinal: soft, no distention, positive bowel sounds TTP difuse Musculoskeletal: no edema, pulses present Neurological: non-focal, normal sensation, moves all 4 limbs Psychiatric: normal affect, A&O x 3 Skin: no rash Dx/Plan (1) Acute on chronic pancreatitis Code(s): K85.90 - ACUTE PANCREATITIS WITHOUT NECROSIS OR INFECTION, UNSP; K86.1 - OTHER CHRONIC PANCREATITIS Status: Acute Comment: Clinically improving. (2) UTI (urinary tract infection) Status: Acute Comment: Empiric ABx. Follow Cx (3) Pneumatosis coli Code(s): K63.89 - OTHER SPECIFIED DISEASES OF INTESTINE Status: Acute (4) ETOH abuse Code(s): F10.10 - ALCOHOL ABUSE, UNCOMPLICATED Status: Acute (5) Bipolar 1 disorder Code(s): F31.9 - BIPOLAR DISORDER, UNSPECIFIED Status: Chronic (6) Hypothyroid Code(s): E03.9 - HYPOTHYROIDISM, UNSPECIFIED Status: Chronic - Plan continue antibiotics, out of bed/ambulate, DVT proph w/SCDs Cont CLD for now. D/WGI.Possible colonoscopy tomorrow -: Cont IVF. Lipase has normalized -: follow urine Cx. -: hemodynamically stable -: alcohal counselling provided again * . Review of Systems - Review of Systems Constitutional: weakness, malaise. negative: fever, chills, sweats, other ENT: negative: Ear Pain, Ear Discharge, Nose Pain, Nose Discharge, Nose Congestion, Mouth Pain, Mouth Swelling, Throat Pain, Throat Swelling, Other Respiratory: negative: Cough, Dry, Shortness of Breath, Hemoptysis, SOB with Excertion, Pleuritic Pain, Sputum, Wheezing Gastrointestinal: Abdominal Pain. negative: Nausea, Vomiting, Diarrhea, Constipation, Melena, Hematochezia, Other Genitourinary: negative: Dysuria, Frequency, Incontinence, Hematuria, Retention , Other Musculoskeletal: negative: Neck Pain, Shoulder Pain, Arm Pain, Back Pain, Hand Pain, Leg Pain, Foot Pain, Other Skin: negative: Rash, Lesions, Jez, Bruising, Other Neurological: negative: Weakness, Numbness, Incoordination, Change in Speech, Confusion, Seizures, Other - Medications/Allergies Allergies/Adverse Reactions: Allergies Allergy/AdvReac Type Severity Reaction Status Date / Time No Known Allergies Allergy Verified 04/06/18 12:01 Medications: Current Medications Acetaminophen (Tylenol) 650 mg RI Q4H PRN PRN Reason: Headache/Fever or Pain Acetaminophen (Tylenol) 650 mg PO Q4H PRN PRN Reason: Headache/Fever or Pain Al Hydroxide/Mg Hydroxide (Maalox) 30 ml PO Q6H PRN PRN Reason: Heartburn or Indigestion Albuterol Sulfate (Proventil Hfa) 2 puff INH Q4H PRN PRN Reason: SOB &/or Wheezing Benzonatate (Tessalon) 100 mg PO Q4H PRN PRN Reason: Cough Bisacodyl (Dulcolax) 10 mg PO DAILYPRN PRN PRN Reason: Constipation Calcium Carbonate (Tums) 1,000 mg PO Q4H PRN PRN Reason: Heartburn or Indigestion Clonidine (Catapres) 0.1 mg PO Q4H PRN PRN Reason: Systolic BP > 160 Ergocalciferol (Drisdol) 1.25 mg PO Q7DAYS [facility] Last Admin: 04/30/18 12:21 Dose: 1.25 mg Folic Acid (Folvite) 1 mg PO DAILY [facility] Last Admin: 05/01/18 07:51 Dose: 1 mg Guaifenesin (Robitussin Sf) 200 mg PO Q4H PRN PRN Reason: Cough Hydralazine HCl (Apresoline) 10 mg SLOW IVP Q4H PRN PRN Reason: Systolic BP > 170 Sodium Chloride (Normal Saline 0.9%) 1,000 mls @ 150 mls/hr IV .Q6H40M [facility] Last Admin: 05/01/18 07:50 Dose: 1,000 mls Piperacillin Sod/Tazobactam (Sod 3.375 gm/ Sodium Chloride) 100 mls @ 200 mls/ hr IVPB Q6HR [facility] Last Admin: 05/01/18 12:16 Dose: 100 mls Iron/Minerals/Multivitamins (Theragran M) 1 tab PO DAILY [facility] Last Admin: 05/01/18 07:51 Dose: 1 tab Lamotrigine (Lamictal) 200 mg PO HS [facility] Last Admin: 04/30/18 20:34 Dose: 200 mg Levothyroxine Sodium (Synthroid) 50 mcg PO 0600 [facility] Last Admin: 05/01/18 05:14 Dose: 50 mcg Loratadine (Claritin) 10 mg PO DAILYPRN PRN PRN Reason: Sinus Symptoms Lorazepam (Ativan) 1 mg SLOW IVP Q4H PRN PRN Reason: Anxiety/Agitation Meperidine HCl (Demerol) 12.5 mg SLOW IVP Q4H PRN PRN Reason: Pain Last Admin: 04/30/18 17:28 Dose: 12.5 mg Mometasone Furoate (Asmanex Twisthaler) 1 puff INH BID-RT [facility] Last Admin: 05/01/18 06:42 Dose: 1 puff Morphine Sulfate (Morphine) 2 mg SLOW IVP Q2H PRN PRN Reason: severe pain Morphine Sulfate (Morphine) 4 mg SLOW IVP Q3H PRN PRN Reason: .SEVERE PAIN 2ND LINE Last Admin: 05/01/18 12:31 Dose: 4 mg Ondansetron HCl (Zofran) 4 mg IVP Q6H PRN PRN Reason: Nausea/Vomiting Pantoprazole Sodium (Protonix) 40 mg PO DAILY [facility] Last Admin: 05/01/18 07:51 Dose: 40 mg Senna (Senokot) 2 tab PO HSPRN PRN PRN Reason: Constipation Sodium Chloride (Flush - Normal Saline) 10 ml IVF Q12HR [facility] Last Admin: 05/01/18 07:51 Dose: Not Given Sodium Chloride (Flush - Normal Saline) 10 ml IVF PRN PRN PRN Reason: Saline Flush Trazodone HCl (Desyrel) 50 mg PO PRN PRN PRN Reason: Insomnia Venlafaxine HCl (Effexor Xr) 75 mg PO DAILY [facility] Last Admin: 05/01/18 07:51 Dose: 75 mg Venlafaxine HCl (Effexor Xr) 150 mg PO DAILY [facility] Last Admin: 05/01/18 07:51 Dose: 150 mg
[2018-05-01] MEDS ORDERED: GoLYTELY 4,000 ml Bottle PO SCH (20:00)
[2018-05-01] MEDS: lamoTRIgine 100 MG TAB PO SCH (20:27)
--- NOTE | 2018-05-01 20:42 | PRG ---
DATE OF SERVICE: 05/01/2018 GI INPATIENT DAILY PROGRESS NOTE SUBJECTIVE: Mrs. Steiner is feeling okay today. She feels abdominal pain and nausea are less. Judy galicia has had a small amount of clear liquids and this has gone down okay. She has been afebrile and hem odynamically stable. PHYSICAL EXAMINATION: VITAL SIGNS: Temperature 98.4, pulse 82, blood pressure 143/94, 96% oxygen saturation on room air. GENERAL: No acute distress. HEART: Regular rate and rhythm. LUNGS: Clear to auscultation bilaterally. ABDOMEN: Bowel sounds are present, soft, tender to palpation diffusely. No guarding, rebound tender ness. EXTREMITIES: No peripheral edema. LABORATORY STUDIES: INR 1.2, total bilirubin 0.7, direct bilirubin 0.4, alkaline phosphatase 188, T 18, ALT 15, lipase 49. ASSESSMENT AND PLAN: 1. Acute on chronic pancreatitis, secondary to alcohol. Note, lipase was normal, but this was demon strated on recent CT scan. The patient continues to drink alcohol. I again discussed with her that she really has to quit completely. 2. Pancreatic head pseudoaneurysm. This was again demonstrated on her recent CT. It is similar in size to prior examination. She is planning to undergo embolization of this in [place] under the dire ction of Dr. Damien Villalta, actually scheduled for this coming Monday. Our goal is still to get her out of the hospital so she can make that procedure. 3. Pneumatosis, cecum. This seems to have been an incidental finding on her recent CT scan. It ford s raise the possibility of ischemia in the right colon, which would be in the SMA distribution. I ag ree with Dr. Colby that further evaluation would be beneficial, particularly with impending vascular intervention later this week. We will go ahead and set her up for a diagnostic colonoscopy tomorrow, evaluate for changes suggestive of ischemic colitis in the right colon. The patient understands and agrees with the plan. Hopefully, if the colonoscopy does not demonstrate any ischemic changes, and she continues to have cl inical improvement, she may be able to discharge in time to get [place] for her procedure on Monday.
[2018-05-02] MEDS: Sodium Chloride 0.9% 1,000 ML IV SCH ×3 (04:45→18:12)
[2018-05-02] MEDS: Piperacillin/Tazobactam 3.375 GM in Sodium Chloride 0.9% 100 ML IVPB SCH ×4 (05:27→21:15)
[2018-05-02] MEDS: Levothyroxine Sodium 50 MCG TAB PO SCH (05:28)
[2018-05-02] MEDS: Mometasone Furoate 120 PUFF 220 MCG INH SCH ×2 (07:22→18:18)
[2018-05-02] MEDS: Venlafaxine HCl XR 150 MG CAP PO SCH (09:23)
[2018-05-02] MEDS: Multivitamin W/ Minerals 1 TAB PO SCH (09:23)
[2018-05-02] MEDS: Venlafaxine HCl XR 75 MG CAP PO SCH (09:23)
[2018-05-02] MEDS: Folic Acid 1 MG TAB PO SCH (09:23)
[2018-05-02] MEDS: Morphine 4 MG/ML VIAL SLOW IVP PRN (09:31)
[2018-05-02] MEDS ORDERED: PROPOFOL 200 MG/20 ML VIAL ONE (09:49)
[2018-05-02] MEDS ORDERED: Fleet Enema 133 ML BOT FS SCH (10:45)
--- NOTE | 2018-05-02 14:51 | PDOC.PN ---
- Subjective Encounter Start Date: 05/02/18 Encounter Start Time: 14:50 Subjective: feels much better. no nausea.abd pain better - Objective Resuscitation Status: Resuscitation Status FULL:Full Resuscitation MAR Reviewed: Yes Vital Signs & Weight: Vital Signs (12 hours) Temp Pulse Resp BP BP Pulse Ox 05/02/18 08:15 97.3 F L 89 17 145/82 H 98 05/02/18 04:00 98.5 F 88 149/82 H 93 L Weight Weight 123 lb 4 oz I&O: 05/01/18 05/02/18 05/03/18 06:59 06:59 06:59 Intake Total 2100 2716 Output Total 800 1400 Balance 1300 1316 Result Diagrams: 04/30/18 04:07 04/30/18 04:07 Additional Labs: Microbiology 04/30/18 02:55 Urine voided Urine Culture - Final NO GROWTH AT 36 HOURS Phys Exam - Physical Examination Constitutional: NAD HEENT: PERRLA, moist MMs, sclera anicteric, oral pharynx no lesions Neck: no nodes, no JVD, supple, full ROM Respiratory: no wheezing, no rales, no rhonchi, clear to auscultation bilateral Cardiovascular: RRR, no significant murmur, no rub Gastrointestinal: soft, non-tender, no distention, positive bowel sounds Musculoskeletal: no edema, pulses present Neurological: non-focal, normal sensation, moves all 4 limbs Psychiatric: normal affect, A&O x 3 Skin: no rash Dx/Plan (1) Acute on chronic pancreatitis Code(s): K85.90 - ACUTE PANCREATITIS WITHOUT NECROSIS OR INFECTION, UNSP; K86.1 - OTHER CHRONIC PANCREATITIS Status: Acute Comment: Clinically improving. (2) UTI (urinary tract infection) Status: Acute Comment: Empiric ABx. Follow Cx (3) Pneumatosis coli Code(s): K63.89 - OTHER SPECIFIED DISEASES OF INTESTINE Status: Acute Comment: Colonoscopy today (4) ETOH abuse Code(s): F10.10 - ALCOHOL ABUSE, UNCOMPLICATED Status: Acute (5) Bipolar 1 disorder Code(s): F31.9 - BIPOLAR DISORDER, UNSPECIFIED Status: Chronic (6) Hypothyroid Code(s): E03.9 - HYPOTHYROIDISM, UNSPECIFIED Status: Chronic - Plan DVT proph w/SCDs Colonoscopy today . -: hemodynamically stable and clinically improved -: empiric Abx .Cx negative so far -: further Rx based on colonoscopy results * . Review of Systems - Review of Systems Constitutional: negative: fever, chills, sweats, weakness, malaise, other Respiratory: negative: Cough, Dry, Shortness of Breath, Hemoptysis, SOB with Excertion, Pleuritic Pain, Sputum, Wheezing Cardiovascular: negative: chest pain, palpitations, orthopnea, paroxysmal nocturnal dyspnea, edema, light headedness, other Gastrointestinal: negative: Nausea, Vomiting, Abdominal Pain, Diarrhea, Constipation, Melena, Hematochezia, Other Genitourinary: negative: Dysuria, Frequency, Incontinence, Hematuria, Retention , Other Musculoskeletal: negative: Neck Pain, Shoulder Pain, Arm Pain, Back Pain, Hand Pain, Leg Pain, Foot Pain, Other Neurological: negative: Weakness, Numbness, Incoordination, Change in Speech, Confusion, Seizures, Other - Medications/Allergies Allergies/Adverse Reactions: Allergies Allergy/AdvReac Type Severity Reaction Status Date / Time No Known Allergies Allergy Verified 04/06/18 12:01 Medications: Current Medications Acetaminophen (Tylenol) 650 mg [place] Q4H PRN PRN Reason: Headache/Fever or Pain Acetaminophen (Tylenol) 650 mg PO Q4H PRN PRN Reason: Headache/Fever or Pain Al Hydroxide/Mg Hydroxide (Maalox) 30 ml PO Q6H PRN PRN Reason: Heartburn or Indigestion Albuterol Sulfate (Proventil Hfa) 2 puff INH Q4H PRN PRN Reason: SOB &/or Wheezing Benzonatate (Tessalon) 100 mg PO Q4H PRN PRN Reason: Cough Bisacodyl (Dulcolax) 10 mg PO DAILYPRN PRN PRN Reason: Constipation Calcium Carbonate (Tums) 1,000 mg PO Q4H PRN PRN Reason: Heartburn or Indigestion Clonidine (Catapres) 0.1 mg PO Q4H PRN PRN Reason: Systolic BP > 160 Ergocalciferol (Drisdol) 1.25 mg PO Q7DAYS [facility] Last Admin: 04/30/18 12:21 Dose: 1.25 mg Folic Acid (Folvite) 1 mg PO DAILY [facility] Last Admin: 05/02/18 09:23 Dose: 1 mg Guaifenesin (Robitussin Sf) 200 mg PO Q4H PRN PRN Reason: Cough Hydralazine HCl (Apresoline) 10 mg SLOW IVP Q4H PRN PRN Reason: Systolic BP > 170 Sodium Chloride (Normal Saline 0.9%) 1,000 mls @ 150 mls/hr IV .Q6H40M [facility] Last Admin: 05/02/18 09:31 Dose: 1,000 mls Piperacillin Sod/Tazobactam (Sod 3.375 gm/ Sodium Chloride) 100 mls @ 200 mls/ hr IVPB Q6HR [facility] Last Admin: 05/02/18 05:27 Dose: 100 mls Iron/Minerals/Multivitamins (Theragran M) 1 tab PO DAILY [facility] Last Admin: 05/02/18 09:23 Dose: 1 tab Lamotrigine (Lamictal) 200 mg PO HS [facility] Last Admin: 05/01/18 20:27 Dose: 200 mg Levothyroxine Sodium (Synthroid) 50 mcg PO 0600 [facility] Last Admin: 05/02/18 05:28 Dose: 50 mcg Loratadine (Claritin) 10 mg PO DAILYPRN PRN PRN Reason: Sinus Symptoms Lorazepam (Ativan) 1 mg SLOW IVP Q4H PRN PRN Reason: Anxiety/Agitation Meperidine HCl (Demerol) 12.5 mg SLOW IVP Q4H PRN PRN Reason: Pain Last Admin: 04/30/18 17:28 Dose: 12.5 mg Mometasone Furoate (Asmanex Twisthaler) 1 puff INH BID-RT [facility] Last Admin: 05/02/18 07:22 Dose: 1 puff Morphine Sulfate (Morphine) 2 mg SLOW IVP Q2H PRN PRN Reason: severe pain Morphine Sulfate (Morphine) 4 mg SLOW IVP Q3H PRN PRN Reason: .SEVERE PAIN 2ND LINE Last Admin: 05/02/18 09:31 Dose: 4 mg Ondansetron HCl (Zofran) 4 mg IVP Q6H PRN PRN Reason: Nausea/Vomiting Pantoprazole Sodium (Protonix) 40 mg PO DAILY [facility] Last Admin: 05/02/18 09:23 Dose: 40 mg Senna (Senokot) 2 tab PO HSPRN PRN PRN Reason: Constipation Sodium Chloride (Flush - Normal Saline) 10 ml IVF Q12HR [facility] Last Admin: 05/02/18 09:25 Dose: Not Given Sodium Chloride (Flush - Normal Saline) 10 ml IVF PRN PRN PRN Reason: Saline Flush Trazodone HCl (Desyrel) 50 mg PO PRN PRN PRN Reason: Insomnia Venlafaxine HCl (Effexor Xr) 75 mg PO DAILY [facility] Last Admin: 05/02/18 09:23 Dose: 75 mg Venlafaxine HCl (Effexor Xr) 150 mg PO DAILY [facility] Last Admin: 05/02/18 09:23 Dose: 150 mg
[2018-05-02] MEDS ORDERED: Ondansetron HCl/PF 4 MG/2 ML Vial IVP PRN (16:25)
[2018-05-02] MEDS ORDERED: Promethazine HCl 25 MG/ML VIAL IM PRN (16:25)
[2018-05-02] MEDS ORDERED: Promethazine HCl 25 MG/ML VIAL SLOW IVP PRN (16:25)
[2018-05-02] MEDS: lamoTRIgine 100 MG TAB PO SCH (21:12)
--- NOTE | 2018-05-02 22:56 | OP ---
DATE OF SERVICE: 05/02/2018 PROCEDURE: Colonoscopy with snare polypectomy. SURGEON: Edward Collado M.D. PAIN MEDICATIONS: Given by the Anesthesiology Department. PREPROCEDURE DIAGNOSIS: Abnormal CT showing pneumatosis in the cecum. POSTOPERATIVE DIAGNOSES: 1. Sigmoid polyp, status post polypectomy. 2. Otherwise normal colon exam. PROCEDURE IN DETAIL: A written consent was obtained prior to procedure. After adequate sedation, a rectal exam was performed and was normal. Endoscope was advanced to the cecum. The quality of the b owel prep was good. The ileocecal valve and appendiceal orifice were visualized and appeared normal. Attempt at ileal intubation was unsuccessful. The mucosa of the cecum and ascending colon appeared completely normal. The hepatic flexure, transverse colon, splenic flexure and descending colon appe ared normal. The sigmoid colon was mildly tortuous. A 5-mm sessile polyp was noted in the sigmoid c olon and was removed with snare electrocautery and retrieved. Rectosigmoid and rectal vault appeared normal including retroflexion. The patient tolerated the procedure well. ASSESSMENT: 1. Sigmoid polyp, status post polypectomy. 2. Otherwise normal colon exam with normal cecum and ascending colon. No evidence of inflammation o r ischemic colitis. RECOMMENDATIONS: 1. Await biopsy result. 2. The patient can be discharged to home from GI standpoint.
[2018-05-03] MEDS: Meperidine HCl/PF 25 MG/ML VIAL SLOW IVP PRN (01:12)
[2018-05-03] MEDS: Sodium Chloride 0.9% 1,000 ML IV SCH ×3 (01:19→13:04)
[2018-05-03] MEDS: Piperacillin/Tazobactam 3.375 GM in Sodium Chloride 0.9% 100 ML IVPB SCH ×3 (04:13→13:04)
[2018-05-03] MEDS: Levothyroxine Sodium 50 MCG TAB PO SCH (06:07)
[2018-05-03] MEDS: Mometasone Furoate 120 PUFF 220 MCG INH SCH (06:26)
[2018-05-03 07:46] VITALS: BP 153/87
[2018-05-03] MEDS: Folic Acid 1 MG TAB PO SCH (09:12)
[2018-05-03] MEDS: Multivitamin W/ Minerals 1 TAB PO SCH (09:12)
[2018-05-03] MEDS: Venlafaxine HCl XR 150 MG CAP PO SCH (09:13)
[2018-05-03] MEDS: Venlafaxine HCl XR 75 MG CAP PO SCH (09:13)
[2018-05-03 12:45] VITALS: TEMP 98.4
--- NOTE | 2018-05-03 23:51 | DIS ---
DATE OF ADMISSION: 04/29/2018 DATE OF DISCHARGE: 05/03/2018 CONDITION AT THE TIME OF DISCHARGE: Stable and improved. DISCHARGE DISPOSITION: Home. DISCHARGE DIAGNOSES: 1. Acute on chronic pancreatitis. 2. Ongoing alcohol abuse. 3. History of pancreatic pseudoaneurysm scheduled for embolization tomorrow in [place]. 4. UTI ruled out. 5. Pneumatosis coli, ruled out; ischemic colitis ruled out. 6. Bipolar disorder. 7. Hypothyroidism. DISCHARGE MEDICATIONS: Resume the home medications as follows: Vitamin D2 every 7 days orally, Asma nex 220 mcg inhalation b.i.d., Synthroid 50 mcg daily, folic acid 1 mg daily, Nexium 40 mg daily, Eff exor XR 75 mg in the morning and 150 mg at night, multivitamin daily, Lamictal 200 mg at bedtime, tra zodone 50 mg at bedtime as needed. INHOUSE CONSULTATIONS: Gastroenterology, Dr. Colby, Dr. Russo and Dr. Collado and General Surgery, Dr. Haja marques. PROCEDURES DONE IN THE HOSPITAL: Colonoscopy to rule out ischemic colitis. It is essentially unrema rkable. Biopsies were obtained. Sigmoid polyp was seen, which was polypectomized. HISTORY OF PRESENTING ILLNESS: Ms. Steiner is a pleasant 62-year-old female with known history of chronic pancreatitis due to alcohol abuse under the care of Gastroenterology, Dr. Russo in the outpati ent setting who presented to the emergency room with complaints of abdominal pain, nausea, vomiting o f 5 days duration. She had mild elevation of lipase in the emergency room was tachycardic and CT sca n of the abdomen and pelvis done in the outside emergency room was consistent with the findings of ac gretchen pancreatitis as well as question of cecal pneumatosis concerning for ischemic colitis. She was a lso found to have urinalysis showing multiple WBCs, bacteria, leukocyte esterase or nitrite. She was started on empiric IV antibiotics and was admitted on IV fluids and n.p.o. status and GI was consult ed. Please see admission history and physical for further details. HOSPITAL COURSE: The patient was seen by Dr. Colby, who advised a colonoscopy to rule out ischemic c olitis as the patient is scheduled to undergo an embolectomy for pancreatic pseudoaneurysm in [place] on 05/04/2018. This was done and was unremarkable. Her symptoms of pancreatitis subsided and lipas e came down to normal quickly. She was able to eat and drink without having any abdominal pain, naus ea, vomiting. As of this morning, she is back to her baseline and is being discharged after being cl eared by GI Services as well. She was seen and examined prior to discharge. PHYSICAL EXAMINATION: VITAL SIGNS: Temperature 98.4, pulse of 82, respirations 16, saturating 96% on room air, blood press ure 153/87. GENERAL APPEARANCE: No acute distress, awake, alert, and oriented x3. ABDOMEN: Slightly tender to palpation, but no rebound, guarding or rigidity. LABORATORY DATA AND IMAGING DATA: Urine culture remained negative at 36 hours. Blood culture remain ed negative x2 at 48-hour. Urine culture obtained in the outside Emergency Room showed E. coli which was pansensitive on 04/29/2018. At this time, the patient has received 4 doses of 4-5 days of IV Zo syn and antibiotics will be interrupted as she has had adequate treatment of her UTI. She will follow up with primary care physician as well. PRIMARY CARE PHYSICIAN: Dr. Kesha Cr. Extensive counseling about alcohol cessation was done and the patient seemed receptive. Discharge pl an was discussed with her and she verbalized understanding. She is encouraged to keep her appointmen t tomorrow in [place] for embolization of her pancreatic pseudoaneurysm. Total time spent 33 minutes.
== END 2018-05-03 13:28 | disposition home or self-care (01) | DRG 440 ==
LOC: ERS 15:10 → T4-A 17:56
PROVIDERS: ADMIT Internal Medicine; ATTEND Internal Medicine
PROC: 0DBN8ZZ Excision of Sigmoid Colon, Via Natural or Artificial Opening Endoscopic (ICD-10-PCS; principal; 2018-05-02)
DX: K85.20 Alcohol induced acute pancreatitis without necrosis or infection (principal); K86.0 Alcohol-induced chronic pancreatitis; I72.8 Aneurysm of other specified arteries; F31.9 Bipolar disorder, unspecified; M35.00 Sjogren syndrome, unspecified; E03.9 Hypothyroidism, unspecified; D64.9 Anemia, unspecified; E55.9 Vitamin D deficiency, unspecified; J44.9 Chronic obstructive pulmonary disease, unspecified; G47.00 Insomnia, unspecified; K63.89 Other specified diseases of intestine; K63.5 Polyp of colon; F10.20 Alcohol dependence, uncomplicated
CPT/HCPCS: 36415; 80048; 80076; 83605; 83690; 85025; 85610; 85730; 87086; 88305; 96374; A4216; C9113; J2175; J2270; J2405; J2543; J2704; J7050

== ENCOUNTER 2018-05-16 13:09 | Inpatient (IN) | payer OTHER ==
[2018-05-16] MEDS ORDERED: Ondansetron HCl/PF 4 MG/2 ML Vial IVP PRN (14:16)
[2018-05-16] MEDS ORDERED: traZODone HCl 50 MG TAB PO PRN ×2 (14:17→16:00)
[2018-05-16] MEDS ORDERED: PROVENTIL INHALER 6.7 G (200 INHALATIONS) INH PRN ×2 (14:17→20:14)
[2018-05-16] MEDS ORDERED: Morphine 4 MG/ML VIAL SLOW IVP PRN ×2 (14:34→20:17)
[2018-05-16] MEDS ORDERED: Dextrose 5 % And 0.9 % NaCl 1,000 ML IV SCH (14:45)
[2018-05-16] MEDS ORDERED: Morphine 2 MG/ML SYRINGE ONE (14:45)
[2018-05-16] MEDS: Morphine 4 MG/ML VIAL ONE ×2 (18:30→18:48)
--- NOTE | 2018-05-16 19:06 | HP ---
CHIEF COMPLAINT: Abdominal pain. HISTORY OF PRESENT ILLNESS: The patient is a very pleasant 62-year-old female who recently was disch arged yesterday from [facility] with the same complaint of abdominal pain. Patient stated that patient does have a history of chronic alcoholic pancreatitis, bipolar, manic depressive disord er, COPD, asthma, GERD, and Sjogren's disease and Sima thyroiditis, who went to the hospital on 05/11/2018 with complaints of abdominal pain. The patient at that time was treated at the [facility]. She was admitted for nausea, vomiting for 5 days. At this time, she was found to be tachycardic and a CT abdomen and pelvis was done, which indicated acute pancreatitis and possible ce [place] pneumatosis concerning for ischemic colitis. Patient also at that time was found to have elevate d WBCs and bacteria in her urinalysis. Patient was started on empiric IV antibiotics and was admitte d on the floor and also GI was consulted. The patient was seen by GI who did do a colonoscopy to rul e out ischemic colitis. Patient's colonoscopy essentially was unremarkable. Her nausea, vomiting, i mproved and then she was discharged home. Patient stated that this morning she started having again abdominal pain, nausea, vomiting which made her come into the ER. The patient denies any fevers or c hills, but just continues to have nausea, vomiting, and some abdominal pain. PAST MEDICAL HISTORY: The patient has a history of: 1. Chronic alcoholic pancreatitis. 2. Bipolar, manic depressive disorder. 3. COPD. 4. Asthma. 5. GERD, 6. Sjogren's. 7. Sima thyroiditis. 8. Vitamin D. 9. Alcohol abuse. 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 FAMILY HISTORY: Father with cancer. Mother passed with heart disease. She has 3 daught ers that who are healthy. SOCIAL HISTORY: She says she drinks about average about a bottle of wine a day, although patient sta olive that yesterday she did not have any alcoholic beverages. She denies any smoking or illicit drug use. ALLERGIES: She has had no known drug allergies. MEDICATIONS: This is from her discharge as following: Vitamin D2 once a day for 7 days, Asmanex 220 mcg inhalation b.i.d., Synthroid 50 mcg daily, folic acid 1 mg daily, Nexium 40 mg daily, Effexor 7 5 in the morning and 150 at night and Lamictal 200 mg at bedtime and trazodone 50 mg as needed. REVIEW OF SYSTEMS: The patient continues to have nausea, vomiting, epigastric and abdominal pain, bu t denies any fevers or chills. The rest of the review of systems are negative. Denies any headaches , syncope, seizures or any weight loss. PHYSICAL EXAMINATION: VITAL SIGNS: Temperature of 98.8. Her heart rates in the 110s. Blood pressure is 170/102, respirat ions are 16, 97% on room air. GENERAL: She is awake, alert, and oriented x3, does appear in mild distress. HEENT: Pupils are round and reactive to light. Sclerae is nonicteric. CARDIOVASCULAR: S1, S2 present. No murmurs, rubs or gallops. Mildly tachycardic. RESPIRATORY: Lungs are clear to auscultation. No rhonchi or wheezes noted. ABDOMEN: Bowel sounds present x2. Positive tenderness when palpation upon epigastric area. Negativ e for rebound or guarding. Nondistended. Positive bowel sounds. NEUROLOGIC: No focal deficits noted. EXTREMITIES: No edema. Pedal pulses are present x2. She does appear to be malnourished. LABORATORY DATA: As of the following: She does have WBCs of 7.5, hemoglobin of 13.1, hematocrit of 37.6, platelets of 447. She does not have any bands. Chemistry: Sodium of 140, potassium of 3.2, B UN of 10, creatinine 0.64, glucose of 135, ammonia of 13. Her lipase is 217. ASSESSMENT AND PLAN: The patient is a very pleasant 62-year-old female who comes into the hospital w ith abdominal pain. 1. Abdominal pains, most likely secondary to acute pancreatitis. This patient has a very complex hi story. We will put the patient on IV hydration also n.p.o. We will also get GI to see this patient. We will start the patient on some pain medications and antinausea medication. The patient states t hat she has not been drinking. 2. History of recent cecal pneumatosis. She did have a colonoscopy, which ruled out ischemic coliti s. Continue to monitor. 3. Abdominal pain, nausea, vomiting. Again, we will continue pain medications, hydration. Consult GI. This could be secondary to her abdominal pain. 4. Hypothyroidism. We will continue her home medications. 5. Depression and anxiety. We will continue her home medications. 6. Deep venous thrombosis prophylaxis. We will put the patient on subcu heparin.
[2018-05-16 19:46] VITALS: BMI 18.0
[2018-05-16] MEDS: traZODone HCl 50 MG TAB PO PRN (20:33)
[2018-05-16] MEDS: Ondansetron HCl/PF 4 MG/2 ML Vial IVP PRN (20:33)
[2018-05-16] MEDS: Famotidine/PF 20 mg/2ml Vial SLOW IVP SCH (20:34)
[2018-05-16] MEDS: Dextrose 5 % And 0.9 % NaCl 1,000 ML IV SCH (20:34)
[2018-05-16] MEDS ORDERED: Famotidine/PF 20 mg/2ml Vial SLOW IVP SCH (21:00)
--- NOTE | 2018-05-17 00:08 | CON ---
DATE OF CONSULTATION: 05/16/2018 REASON FOR CONSULTATION: Abdominal pain, history of chronic pancreatitis. HISTORY: Ms. Steiner is a 62-year-old female with a history of chronic pancreatitis, presumably fr om alcohol usage. She has had recurrent admissions to the hospital for pain control. The patient wa s in this facility about 3 weeks ago. At which time, her acute component of her pancreatitis resolve d. She subsequently went down to [place] for embolization of a pancreatic head pseudoaneurysm, which was performed as an outpatient. Patient has had recurrent abdominal pain and was admitted to [facility] for 5 days and was discharged home yesterday. Reportedly, at the time of discharge, she was pain free. During that admission to [place], her lipase was elevated to 224 on admissi on, which normalized down to 77 at the time of discharge. She did well after they getting home yest erday until last night when she developed recurrent severe upper abdominal pain that signed the epiga strium and radiated around the right flank to her right back. The pain was severe, described as aren p and stabbing, associated with nausea, vomiting. She denies having any fevers or chills. There was no altered bowel function. There is no evidence of GI bleeding. Patient presented back to [facility] in [place] for further evaluation and pain control. Currently, her pain is better, rated at 7/10 . She reports having complete alcohol abstinence, the last 10 days. Patient has had multiple imagin g studies in the past. She had an endoscopic ultrasound of the pancreas that showed a stable cyst wi th calcification in the head of the pancreas consistent with chronic pancreatitis. She does not have any evidence of any exocrine or endocrine insufficiency. PAST MEDICAL HISTORY: 1. Chronic pancreatitis as above. 2. 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 3. Lupus. 4. Asthma. 5. Degenerative joint disease. 6. Hypothyroidism. 7. Atrial fibrillation. 8. Sjogren syndrome. 9. Bipolar disorder. ALLERGIES: None. SOCIAL HISTORY: Patient in the past had consumed 5-6 glasses of wine a day. She reports having abst inence from alcohol for the last 10 days. She denies any smoking history. No illicit drug use curre ntly. FAMILY HISTORY: Negative for any known GI problem, liver disease, GI malignancy. CURRENT MEDICATIONS: Include trazodone, Effexor, Synthroid, folic acid, Proventil inhaler, Lamictal, vitamin D, magnesium, and Tylenol No.3 as needed. ALLERGIES: None. REVIEW OF SYSTEMS: Ten-point review of systems did not show any pertinent positive or negative. PHYSICAL EXAMINATION: VITAL SIGNS: Temperature is 96.7, blood pressure 114/78, pulse of 80. GENERAL: She is alert, in no distress. HEENT: Shows anicteric sclerae. Oropharynx clear. NECK: Supple. CARDIOVASCULAR: Shows normal S1, S2 regular rate and rhythm. CHEST: Shows breath sounds. ABDOMEN: Soft, mildly tender in the right upper quadrant. No guarding, tense, or rebound. No diste ntion. She has active bowel sounds. EXTREMITIES: Shows no edema. LABORATORY DATA: WBC is 7.5, hemoglobin 13.1, platelet count of 447. Electrolytes within normal ran ge, creatinine 0.64. Her bilirubin is 0.6, AST 41, ALT 16, alkaline phosphatase 129, lipase of 217. ASSESSMENT: 1. Acute on chronic pancreatitis with fairly benign exam and normal vitals and hemodynamics. [place] recently had embolization of pancreatic head pseudoaneurysm. Reportedly, she has abstained from al cohol for the last 10 days. 2. History of lupus and Sjogren's. 3. Chronic obstructive pulmonary disease. 4. History of Sima thyroiditis. 5. History of bipolar disorder. RECOMMENDATIONS: 1. Continue with pancreatic rest with n.p.o. and IV hydration. 2. Pain control, current morphine dose should be adequate. 3. We will obtain abdominal CT in a.m. to rule out any complication that may arise from recent embol ization of her pancreatic head aneurysm. 4. We will follow.
[2018-05-17] MEDS: Dextrose 5 % And 0.9 % NaCl 1,000 ML IV SCH ×4 (00:20→19:42)
[2018-05-17] MEDS: Levothyroxine Sodium 50 MCG TAB PO SCH (05:24)
[2018-05-17] MEDS: Morphine 2 MG/ML SYRINGE SLOW IVP PRN ×4 (05:24→18:35)
[2018-05-17] MEDS ORDERED: Levothyroxine Sodium 50 MCG TAB PO SCH (06:00)
[2018-05-17] MEDS ORDERED: Venlafaxine HCl XR 150 MG CAP PO SCH (09:00)
[2018-05-17] MEDS ORDERED: Venlafaxine HCl XR 75 MG CAP PO SCH (09:00)
[2018-05-17] MEDS ORDERED: Folic Acid 1 MG TAB PO SCH (09:00)
[2018-05-17] MEDS ORDERED: Enoxaparin Sodium 40 MG/0.4 ML SYRINGE SC SCH (09:00)
[2018-05-17] MEDS: Enoxaparin Sodium 40 MG/0.4 ML SYRINGE SC SCH (09:11)
[2018-05-17] MEDS: Famotidine/PF 20 mg/2ml Vial SLOW IVP SCH ×2 (09:11→19:42)
[2018-05-17] MEDS: Folic Acid 1 MG TAB PO SCH (09:11)
[2018-05-17] MEDS: Venlafaxine HCl XR 75 MG CAP PO SCH (09:12)
[2018-05-17] MEDS: Ondansetron HCl/PF 4 MG/2 ML Vial IVP PRN ×2 (09:14→14:18)
[2018-05-17] MEDS: Venlafaxine HCl XR 150 MG CAP PO SCH (10:22)
--- NOTE | 2018-05-17 11:06 | PRG ---
DATE OF SERVICE: 05/17/2018 GI INPATIENT DAILY PROGRESS NOTE SUBJECTIVE: Ms. Steiner says she is feeling quite a bit better today. Pain is adequately controll ed with the IV morphine. She denies any nausea at this time. She has remained hemodynamically stabl e. OBJECTIVE: VITAL SIGNS: Temperature 99.0, pulse 90, blood pressure 126/74, 97% oxygen saturation on room air. GENERAL: No acute distress. HEART: Regular rate and rhythm. LUNGS: Clear to auscultation bilaterally. ABDOMEN: Nondistended. Bowel sounds are hypoactive, but present. The abdomen is flat. There is te nderness to palpation in the epigastrium, but no guarding, rebound tenderness. EXTREMITIES: No peripheral edema. LABORATORY DATA: Labs are from yesterday showing hemoglobin 13.1, WBC 7.5, platelets 447, lipase 217 , amylase 87. Lactic acid 1.0, sodium 140, potassium 3.2, BUN 10, creatinine 0.64. IMAGING STUDIES: CT of the abdomen and pelvis was performed earlier today. This demonstrates peripa ncreatic edema around the pancreatic head, persistent calcifications in the head of the pancreas, als o new cluster of embolization coils in the head of the pancreas. Notably, there is no extra pancreat ic hematoma, no evidence of portal vein thrombosis. She has continued pancreatic ductal dilation. ASSESSMENT AND PLAN: 1. Acute recurrent pancreatitis, secondary to alcohol. 2. Pancreatic pseudoaneurysm, status post recent coil embolization in [place] within the past couple of weeks. 3. Chronic pancreatitis. I discussed with Mrs. Steiner that her CT scan thankfully does not show any evidence of complications from her recent coil embolization of her pancreatic pseudoaneurysm. Th ere is no extra pancreatic hematoma, no evidence of new hemorrhage. She does have evidence of edema around the head of the pancreas consistent with her presentation. She did have some alcohol within t he past few days, and I again admonished her that she really has to quit drinking all alcohol. It is possible that her recent embolization procedure might have precipitated this current episode of panc reatitis, but I would expect it to resolve. She has already significantly clinically improved, we wi ll go ahead and advance her diet to a clear liquid diet for today. Hopefully, we will be able to adv ance her diet rapidly over the next day or two. Please call any time with questions or concerns.
--- NOTE | 2018-05-17 12:19 | CT ---
CT ABDOMEN WITH CONTRAST CT PELVIS WITH CONTRAST: DATE: 05/17/18 HISTORY: 62-year-old female with pancreatitis, status post embolization of pseudoaneurysm. Abdominal pain and nausea. COMPARISON: 04/29/18. TECHNIQUE: IV injection of iodinated contrast media: Administered. Oral contrast media: Administered. FINDINGS: Again noted is the peripancreatic fat stranding representing edema, consistent with pancreatitis. Thi s fluid tracks along the right anterior pararenal fascia. The previously demonstrate calcifications o f the pancreatic head are also again demonstrated. There is a cluster of new small metallic objects a long the anterior aspect of the pancreatic head. Given the history, these may represent embolization coils. The multiphase CT of 12/28/17 which showed a 1 cm focus of enhancement at the pancreatic head during the arterial phase, consistent with active bleeding of pseudoaneurysm, was followed by a 04/29 venous phase only scan, which showed an approximately 1.7 x 1.8 x 1.9 cm cystic lesion at the aragon creatic head, presumably the hematoma portion of the thrombosed portion of the pseudoaneurysm, plus a tiny 0.8 x 0.5 x 0.5 cm nodule of enhancement within it, probably representing the active bleeding s een during the venous phase. Currently, that cystic component measures larger, 2.0 x 2.2 x 2.3 cm. Th e central enhancing nodule, representing the active hemorrhage within it, is not demonstrated on the current study, but the sensitivity is decreased for the detection of residual hemorrhage because an a rterial phase scan was not performed. Pancreatic head is enlarged and edematous. No discrete extrapan creatic hematoma is visualized. No abdominal aortic aneurysm. Diffusely low hepatic attenuation repre sents fatty liver. No portal vein thrombosis. The pancreatic duct is again demonstrated to be diffuse ly dilated. Bilateral kidneys, adrenals, and spleen are normal. The urinary bladder is unremarkable. No colonic diverticulitis. No small bowel dilation. No pneumoperitoneum. IMPRESSION: 1. Evidence for acute pancreatitis at the pancreatic head. 2. Pancreatic calcifications consistent with component of chronic pancreatitis. 3. The cystic lesion at the pancreatic head has slightly grown since the prior CT. This is consisten t with the thrombosed portion of the pseudoaneurysm. 4. The central enhancing nodule, representing the active bleeding within it, is no longer visualized , but the sensitivity is decreased because an arterial phase scan was not performed. 5. Hepatic steatosis. JNR POS: SAQIB
[2018-05-17] MEDS ORDERED: ISOVUE-370 76%-LOCM 1 ML ONE (12:26)
--- NOTE | 2018-05-17 14:08 | PDOC.PN ---
- Subjective Encounter Start Date: 05/17/18 Encounter Start Time: 14:06 Was doing better. Took some liquids and has had a recurrence of pain and nausea. - Objective Resuscitation Status: Resuscitation Status FULL:Full Resuscitation Vital Signs & Weight: Vital Signs (12 hours) Temp Pulse Resp BP BP Pulse Ox 05/17/18 08:01 99.0 F 90 126/74 97 05/17/18 08:00 97 05/17/18 04:44 98.1 F 98 20 146/81 H 98 05/17/18 03:52 94 L Weight Weight 114 lb 15.89 oz I&O: 05/16/18 05/17/18 05/18/18 06:59 06:59 06:59 Intake Total 875 400 Balance 875 400 Phys Exam - Physical Examination Constitutional: NAD Respiratory: no wheezing, no rales, no rhonchi, clear to auscultation bilateral Cardiovascular: RRR, no significant murmur Gastrointestinal: soft, no distention, positive bowel sounds TTP in epigastrium. Musculoskeletal: no edema Dx/Plan (1) Acute on chronic pancreatitis Code(s): K85.90 - ACUTE PANCREATITIS WITHOUT NECROSIS OR INFECTION, UNSP; K86.1 - OTHER CHRONIC PANCREATITIS Status: Acute Comment: Clinically improving. (2) ETOH abuse Code(s): F10.10 - ALCOHOL ABUSE, UNCOMPLICATED Status: Acute - Plan * GI following. Modest bowel rest. Recommend she slow down on the liquids. Continue pain meds and nausea treatment.
[2018-05-17] MEDS: traZODone HCl 50 MG TAB PO PRN (19:44)
[2018-05-18] MEDS: Morphine 2 MG/ML SYRINGE SLOW IVP PRN ×5 (03:27→20:36)
[2018-05-18] MEDS: Ondansetron HCl/PF 4 MG/2 ML Vial IVP PRN ×3 (03:27→16:30)
[2018-05-18] MEDS: Levothyroxine Sodium 50 MCG TAB PO SCH (05:44)
[2018-05-18] MEDS: Dextrose 5 % And 0.9 % NaCl 1,000 ML IV SCH ×2 (05:44→16:30)
[2018-05-18 08:29] LABS: #Basophils 0.1 thou/uL (0.0-0.2); #Eosinphils 0.4 thou/uL (0.0-0.7); #Lymphocytes 0.9 thou/uL (1.20-3.40); #Monocytes 0.3 thou/uL (0.11-0.59); #Neutrophils 2.2 thou/uL (1.40-6.50); %Basophils 1.7 % (0.0-1.0); %Eosinophils 10.1 % (0.0-10.0); %Lymphocytes 22.9 % (21.0-51.0); %Monocytes 8.6 % (0.0-10.0); %Neutrophils 56.7 % (42.0-75.0); Hemoglobin 10.9 g/dL (12.0-16.0); Mean Corpuscular HGB CONC 31.5 g/dL (32.0-36.0); Mean Corpuscular Hemoglobin 33.5 pg (27.0-31.0); Mean Platelet Volume 7.9 fL (7.4-10.4); Platelet Count 337 thou/uL (130-400); RBC Distribution Width 11.5 % (11.5-14.5); Red Blood Cell (RBC) Count 3.26 mill/uL (4.20-5.40); White Blood Cell (WBC) Count 3.9 thou/uL (4.8-10.8)
[2018-05-18] MEDS: Enoxaparin Sodium 40 MG/0.4 ML SYRINGE SC SCH (08:30)
[2018-05-18] MEDS: Venlafaxine HCl XR 150 MG CAP PO SCH (08:31)
[2018-05-18] MEDS: Venlafaxine HCl XR 75 MG CAP PO SCH (08:31)
[2018-05-18] MEDS: Famotidine/PF 20 mg/2ml Vial SLOW IVP SCH ×2 (08:31→20:29)
[2018-05-18] MEDS: Folic Acid 1 MG TAB PO SCH (08:31)
[2018-05-18 08:41] LABS: Anion Gap 8 mmol/L (10-20); BUN (Urea Nitrogen) Less than 4 mg/dL (9.8-20.1); Calc. Creatinine Clearance 91 mL/min (70-130); Calcium 8.2 mg/dL (7.8-10.44); Carbon Dioxide 27 mmol/L (23-31); Chloride 109 mmol/L (98-107); Estimated GFR-MDRD Greater than 90; Glucose 134 mg/dL (80-115); Sodium 141 mmol/L (136-145)
[2018-05-18 08:50] LABS: Potassium 2.7 mmol/L (3.5-5.1)
[2018-05-18] MEDS ORDERED: Potassium Chloride 20 MEQ TAB PO SCH (10:30)
[2018-05-18] MEDS: Potassium Chloride 20 MEQ in Premix Bag 1 BAG IVPB SCH ×2 (11:21→13:01)
--- NOTE | 2018-05-18 14:10 | PRG ---
DATE OF SERVICE: 05/18/2018 SUBJECTIVE: Ms. Steiner feels about the same. She is able to tolerate a small amount of clear liq uids, but if she takes in too much, she has recurrence of nausea and epigastric pain. She has remain ed hemodynamically stable. She has no other complaints. She continues to receive morphine. OBJECTIVE: VITAL SIGNS: Temperature 98.5, pulse 77, blood pressure 109/66, 95% oxygen saturation on room air. GENERAL: In no acute distress. HEART: Regular rate and rhythm. LUNGS: Clear to auscultation bilaterally. ABDOMEN: Bowel sounds are active. The abdomen is flat and soft. There is tenderness to light palpa tion in the epigastrium. No guarding or rebound tenderness. EXTREMITIES: No peripheral edema. LABORATORY STUDIES: WBC 3.9, hemoglobin 10.9, platelets 337. Sodium 141, potassium 2.7, BUN less th an 4, creatinine 0.52. ASSESSMENT AND PLAN: 1. Acute pancreatitis, recurrent, secondary to alcohol. 2. Pancreatic pseudoaneurysm, status post recent coil embolization procedure in [place]. 3. Chronic calcific pancreatitis. I discussed with the patient that all of her clinical and laboratory parameters remain favorable. Fo r now, continuing supportive treatment. Hopefully, with symptomatic improvement, we will be able to advance her diet and move towards discharge this weekend. Dr. Chan is covering for GI this weekend.
--- NOTE | 2018-05-18 14:22 | PDOC.PN ---
- Subjective Encounter Start Date: 05/18/18 Encounter Start Time: 13:10 Still having some abdominal discomfort. Taking very small amounts of clear liquids. - Objective Resuscitation Status: Resuscitation Status FULL:Full Resuscitation Vital Signs & Weight: Vital Signs (12 hours) Temp Pulse Resp BP Pulse Ox 05/18/18 07:20 98.5 F 77 16 109/66 95 Weight Admit Weight 114 lb 15.89 oz Weight 114 lb 15.89 oz I&O: 05/17/18 05/18/18 05/19/18 06:59 06:59 06:59 Intake Total 875 2200 Output Total 802 Balance 875 1398 Result Diagrams: 05/18/18 08:08 05/18/18 08:08 Phys Exam - Physical Examination Constitutional: NAD Respiratory: no wheezing, no rales, no rhonchi, clear to auscultation bilateral Cardiovascular: RRR, no significant murmur, no rub Gastrointestinal: soft, no distention, positive bowel sounds TTP in the epigastrium. Musculoskeletal: no edema Psychiatric: normal affect Dx/Plan (1) Acute on chronic pancreatitis Code(s): K85.90 - ACUTE PANCREATITIS WITHOUT NECROSIS OR INFECTION, UNSP; K86.1 - OTHER CHRONIC PANCREATITIS Status: Acute Comment: Clinically improving. Still has some discomfort. Keep at clear liquids as tolerated. Recent coil procedure at outside facility. GI following. (2) ETOH abuse Code(s): F10.10 - ALCOHOL ABUSE, UNCOMPLICATED Status: Acute (3) Hypothyroid Code(s): E03.9 - HYPOTHYROIDISM, UNSPECIFIED Status: Chronic Comment: Continue home dose of synthroid. (4) Hypokalemia Code(s): E87.6 - HYPOKALEMIA Status: Acute Comment: IV repletion. Continue to monitor. - Plan * IVF, pain management.
[2018-05-18] MEDS: traZODone HCl 50 MG TAB PO PRN (20:31)
[2018-05-19] MEDS: Morphine 2 MG/ML SYRINGE SLOW IVP PRN ×5 (04:23→22:35)
[2018-05-19] MEDS: Ondansetron HCl/PF 4 MG/2 ML Vial IVP PRN ×2 (04:23→12:33)
[2018-05-19] MEDS: Dextrose 5 % And 0.9 % NaCl 1,000 ML IV SCH ×2 (04:30→08:32)
[2018-05-19] MEDS: Levothyroxine Sodium 50 MCG TAB PO SCH (04:32)
[2018-05-19 06:11] LABS: #Eosinphils 0.4 thou/uL (0.0-0.7); #Lymphocytes 0.9 thou/uL (1.20-3.40); #Monocytes 0.4 thou/uL (0.11-0.59); #Neutrophils 1.8 thou/uL (1.40-6.50); %Basophils 0.8 % (0.0-1.0); %Eosinophils 12.1 % (0.0-10.0); %Lymphocytes 26.6 % (21.0-51.0); %Monocytes 10.7 % (0.0-10.0); %Neutrophils 49.8 % (42.0-75.0); Anion Gap 8 mmol/L (10-20); BUN (Urea Nitrogen) Less than 4 mg/dL (9.8-20.1); Calc. Creatinine Clearance 99 mL/min (70-130); Calcium 8.2 mg/dL (7.8-10.44); Carbon Dioxide 26 mmol/L (23-31); Chloride 109 mmol/L (98-107); Estimated GFR-MDRD Greater than 90; Glucose 130 mg/dL (80-115); Hemoglobin 10.2 g/dL (12.0-16.0); Platelet Count 294 thou/uL (130-400); RBC Distribution Width 11.4 % (11.5-14.5); Red Blood Cell (RBC) Count 2.92 mill/uL (4.20-5.40); Sodium 140 mmol/L (136-145); White Blood Cell (WBC) Count 3.5 thou/uL (4.8-10.8)
[2018-05-19 06:16] LABS: Potassium 2.8 mmol/L (3.5-5.1)
[2018-05-19] MEDS: Potassium Chloride 20 MEQ in Premix Bag 1 BAG IVPB SCH (08:29)
[2018-05-19] MEDS: Venlafaxine HCl XR 150 MG CAP PO SCH (08:31)
[2018-05-19] MEDS: Venlafaxine HCl XR 75 MG CAP PO SCH (08:31)
[2018-05-19] MEDS: Famotidine/PF 20 mg/2ml Vial SLOW IVP SCH ×2 (08:31→20:34)
[2018-05-19] MEDS: Enoxaparin Sodium 40 MG/0.4 ML SYRINGE SC SCH (08:32)
[2018-05-19] MEDS: Folic Acid 1 MG TAB PO SCH (08:32)
--- NOTE | 2018-05-19 12:05 | PDOC.PN ---
- Subjective Encounter Start Date: 05/19/18 Encounter Start Time: 11:25 Still has a little discomfort. No real change with clears. Has ambulated a little bit. Not a lot. - Objective Resuscitation Status: Resuscitation Status FULL:Full Resuscitation Vital Signs & Weight: Vital Signs (12 hours) Temp Pulse Resp BP Pulse Ox 05/19/18 08:00 98.2 F 73 16 123/81 97 Weight Admit Weight 114 lb 15.89 oz Weight 114 lb 15.89 oz I&O: 05/18/18 05/19/18 05/20/18 06:59 06:59 06:59 Intake Total 2200 250 Output Total 802 Balance 1398 250 Result Diagrams: 05/19/18 04:55 05/19/18 04:55 Phys Exam - Physical Examination Constitutional: NAD HEENT: PERRLA, oral pharynx no lesions Respiratory: no wheezing, no rales, no rhonchi, clear to auscultation bilateral Cardiovascular: RRR, no significant murmur, no rub Gastrointestinal: soft, no distention, positive bowel sounds Modest epigastric TTP. No guarding. Musculoskeletal: no edema Psychiatric: normal affect, A&O x 3 Dx/Plan (1) Acute on chronic pancreatitis Code(s): K85.90 - ACUTE PANCREATITIS WITHOUT NECROSIS OR INFECTION, UNSP; K86.1 - OTHER CHRONIC PANCREATITIS Status: Acute Comment: Clinically improving. Still has some discomfort. Advancing to full liquids. Recent coil procedure at outside facility. GI following. (2) ETOH abuse Code(s): F10.10 - ALCOHOL ABUSE, UNCOMPLICATED Status: Acute Comment: On Folate. Adding Thiamine. (3) Hypothyroid Code(s): E03.9 - HYPOTHYROIDISM, UNSPECIFIED Status: Chronic Comment: Continue home dose of synthroid. (4) Hypokalemia Code(s): E87.6 - HYPOKALEMIA Status: Acute Comment: IV repletion. Continue to monitor. - Plan * above.
[2018-05-19] MEDS: traZODone HCl 50 MG TAB PO PRN (22:40)
[2018-05-20] MEDS: Dextrose 5 % And 0.9 % NaCl 1,000 ML IV SCH ×3 (03:30→16:24)
[2018-05-20] MEDS: Ondansetron HCl/PF 4 MG/2 ML Vial IVP PRN ×3 (04:10→20:22)
[2018-05-20] MEDS: Morphine 4 MG/ML VIAL SLOW IVP PRN ×4 (04:10→20:21)
[2018-05-20 04:40] LABS: #Eosinphils 0.3 thou/uL (0.0-0.7); #Monocytes 0.4 thou/uL (0.11-0.59); #Neutrophils 1.4 thou/uL (1.40-6.50); %Basophils 1.5 % (0.0-1.0); %Eosinophils 9.1 % (0.0-10.0); %Lymphocytes 32.7 % (21.0-51.0); %Monocytes 11.6 % (0.0-10.0); %Neutrophils 45.2 % (42.0-75.0); Hemoglobin 9.3 g/dL (12.0-16.0); Mean Corpuscular HGB CONC 33.2 g/dL (32.0-36.0); Mean Platelet Volume 7.9 fL (7.4-10.4); Platelet Count 274 thou/uL (130-400); RBC Distribution Width 11.4 % (11.5-14.5); Red Blood Cell (RBC) Count 2.64 mill/uL (4.20-5.40); White Blood Cell (WBC) Count 3.1 thou/uL (4.8-10.8)
[2018-05-20 04:49] LABS: Anion Gap 7 mmol/L (10-20); BUN (Urea Nitrogen) Less than 4 mg/dL (9.8-20.1); Calc. Creatinine Clearance 95 mL/min (70-130); Calcium 8.2 mg/dL (7.8-10.44); Carbon Dioxide 28 mmol/L (23-31); Chloride 110 mmol/L (98-107); Estimated GFR-MDRD Greater than 90; Glucose 140 mg/dL (80-115); Potassium 3.2 mmol/L (3.5-5.1); Sodium 142 mmol/L (136-145)
[2018-05-20] MEDS: Levothyroxine Sodium 50 MCG TAB PO SCH (06:38)
[2018-05-20] MEDS: Folic Acid 1 MG TAB PO SCH (08:13)
[2018-05-20] MEDS: Venlafaxine HCl XR 150 MG CAP PO SCH (08:13)
[2018-05-20] MEDS: Venlafaxine HCl XR 75 MG CAP PO SCH (08:13)
[2018-05-20] MEDS: Enoxaparin Sodium 40 MG/0.4 ML SYRINGE SC SCH (08:14)
[2018-05-20] MEDS: Famotidine/PF 20 mg/2ml Vial SLOW IVP SCH ×2 (08:14→20:21)
[2018-05-20] MEDS ORDERED: Acetaminophen/Codeine 30-300mg Tablet PO PRN (13:50)
--- NOTE | 2018-05-20 13:52 | PDOC.PN ---
- Subjective Encounter Start Date: 05/20/18 Encounter Start Time: 10:35 Still has some discomfort. Says she always has some, even at home. Takes T3 at home. Tolerated po's. Still not ambulating much. Says she feels mentally better today. - Objective Resuscitation Status: Resuscitation Status FULL:Full Resuscitation Vital Signs & Weight: Vital Signs (12 hours) Temp Pulse Resp BP Pulse Ox 05/20/18 08:00 98.0 F 79 16 108/67 95 Weight Admit Weight 114 lb 15.89 oz Weight 114 lb 15.89 oz I&O: 05/19/18 05/20/18 05/21/18 06:59 06:59 06:59 Intake Total 1936 Balance 1936 Result Diagrams: 05/20/18 03:51 05/20/18 03:51 Phys Exam - Physical Examination Constitutional: NAD Respiratory: no wheezing, no rales, no rhonchi, clear to auscultation bilateral Cardiovascular: RRR, no significant murmur, no rub Gastrointestinal: soft, no distention, positive bowel sounds Slight epigastric TTP. Psychiatric: normal affect, A&O x 3 Dx/Plan (1) Acute on chronic pancreatitis Code(s): K85.90 - ACUTE PANCREATITIS WITHOUT NECROSIS OR INFECTION, UNSP; K86.1 - OTHER CHRONIC PANCREATITIS Status: Acute Comment: Clinically improving. Still has some discomfort. Advancing to full liquids. Recent coil procedure for vascular issue at the pancreas at outside facility. Unclear if that may have triggered the acute flare. Will give her the Tyl #3 that she takes at home to see if that will be adequate to control the pain. GI following. (2) ETOH abuse Code(s): F10.10 - ALCOHOL ABUSE, UNCOMPLICATED Status: Acute Comment: On Folate/Thiamine. (3) Hypothyroid Code(s): E03.9 - HYPOTHYROIDISM, UNSPECIFIED Status: Chronic Comment: Continue home dose of synthroid. (4) Hypokalemia Code(s): E87.6 - HYPOKALEMIA Status: Acute Comment: IV repletion. Continue to monitor. - Plan * Discharge goals: adequate oral intake, pain managed, potassium normalized.
[2018-05-20] MEDS: Potassium Chloride 20 MEQ in Premix Bag 1 BAG IVPB SCH ×2 (16:19→16:20)
--- NOTE | 2018-05-20 17:26 | PRG ---
DATE OF SERVICE: 05/20/2018 SUBJECTIVE: Ms. Yanet Steiner is a 62-year-old female with recurrent pancreatitis. The patient had abdominal pain. The pain is less than before. She has no nausea, no vomiting. Her diet was advanced to full liquid diet yesterday and she is able to take a full liquid diet with worsening abdominal pain. She is passing gas and . PHYSICAL EXAMINATION: GENERAL: Appears comfortable. VITAL SIGNS: Temperature 98 degrees Fahrenheit, pulse 79, blood pressure 108/67. CARDIOVASCULAR: First and second heart sounds normal. LUNGS: Clear to auscultation. ABDOMEN: Soft and nondistended. 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 There is no rebound or guarding. LABORATORY DATA: From today, WBC 3100, hemoglobin 9.3, hematocrit 27.9, platelet count 274,000. Nuvia reji panel: Sodium is 142, potassium 3.2, chloride 110, bicarbonate 28, BUN is less than 4, creati nine 0.50, glucose 140, calcium 8.2. RECOMMENDATION: Continue full liquid diet for one more day well, advance diet to hopefully a r egular diet tomorrow.
[2018-05-20] MEDS: traZODone HCl 50 MG TAB PO PRN (20:26)
[2018-05-21] MEDS: Morphine 4 MG/ML VIAL SLOW IVP PRN ×4 (04:08→20:22)
[2018-05-21] MEDS: Ondansetron HCl/PF 4 MG/2 ML Vial IVP PRN (04:08)
[2018-05-21 05:28] LABS: #Basophils 0.1 thou/uL (0.0-0.2); #Eosinphils 0.3 thou/uL (0.0-0.7); #Lymphocytes 1.3 thou/uL (1.20-3.40); #Monocytes 0.4 thou/uL (0.11-0.59); #Neutrophils 1.6 thou/uL (1.40-6.50); %Basophils 1.5 % (0.0-1.0); %Eosinophils 8.7 % (0.0-10.0); %Lymphocytes 35.4 % (21.0-51.0); %Monocytes 10.9 % (0.0-10.0); %Neutrophils 43.5 % (42.0-75.0); Hemoglobin 10.8 g/dL (12.0-16.0); Mean Corpuscular Hemoglobin 34.9 pg (27.0-31.0); Mean Platelet Volume 8.3 fL (7.4-10.4); Platelet Count 328 thou/uL (130-400); RBC Distribution Width 11.5 % (11.5-14.5); White Blood Cell (WBC) Count 3.8 thou/uL (4.8-10.8)
[2018-05-21 05:37] LABS: Anion Gap 9 mmol/L (10-20); BUN (Urea Nitrogen) Less than 4 mg/dL (9.8-20.1); Calc. Creatinine Clearance 89 mL/min (70-130); Calcium 8.7 mg/dL (7.8-10.44); Carbon Dioxide 28 mmol/L (23-31); Chloride 107 mmol/L (98-107); Estimated GFR-MDRD Greater than 90; Glucose 114 mg/dL (80-115); Potassium 3.7 mmol/L (3.5-5.1); Sodium 140 mmol/L (136-145)
[2018-05-21] MEDS: Levothyroxine Sodium 50 MCG TAB PO SCH (06:11)
[2018-05-21] MEDS: Enoxaparin Sodium 40 MG/0.4 ML SYRINGE SC SCH (07:42)
[2018-05-21] MEDS: Venlafaxine HCl XR 150 MG CAP PO SCH (07:43)
[2018-05-21] MEDS: Famotidine/PF 20 mg/2ml Vial SLOW IVP SCH ×2 (07:43→20:23)
[2018-05-21] MEDS: Folic Acid 1 MG TAB PO SCH (07:43)
[2018-05-21] MEDS: Venlafaxine HCl XR 75 MG CAP PO SCH (07:43)
[2018-05-21] MEDS: Dextrose 5 % And 0.9 % NaCl 1,000 ML IV SCH ×2 (09:39→19:00)
--- NOTE | 2018-05-21 13:54 | PRG ---
DATE OF SERVICE: 05/19/2018 This is a cross coverage for Dr. Dieter Russo. SUBJECTIVE: This is a 62-year-old female with recurrent pancreatitis. She appears to hav e chronic calcific pancreatitis . The patient has had a coil placement for a pseudoaneurysm ove r the pancreatic area 2 weeks ago in [place]. The patient is on clear liquid diet and also on pain m edication. She continues to have abdominal pain and nothing much has changed. She is taking sips of clear liquid diet. However, she says she wants to try full liquid diet to see if she can keep it do wn. Her abdominal pain remains unchanged. Her chem-7 shows hypokalemia. She is on a potassium ride r. PHYSICAL EXAMINATION: GENERAL: Appears comfortable thin built. VITAL SIGNS: Stable. Afebrile, pulse is 73, blood pressure 123/81. CARDIOVASCULAR SYSTEM AND LUNGS: Within normal limits. ABDOMEN: Soft. Abdomen is nondistended. Abdomen is tender across the upper abdomen. There is no r ebound or guarding. LABORATORY DATA: From today shows CBC; WBC 3500. No bandemia, polymorphs 49, lymphocytes 26, monocy jg 10. Chem-7 shows potassium at 2.8 and BUN is 8. IMPRESSION: Recurrent pancreatitis, more like chronic calcific pancreatitis. RECOMMENDATIONS: 1. Advance diet to full liquid diet. 2. Potassium replacement. 3. Continue pain medication.
--- NOTE | 2018-05-21 18:55 | PRG ---
DATE OF SERVICE: 05/21/2018 GI INPATIENT DAILY PROGRESS NOTE SUBJECTIVE: Mrs. Steiner had slow improvement over the weekend. She is tolerating a full liquid d iet as long as she does not drink too fast. She is about to start in on a sandwich. No current abdo abdias pain or nausea. OBJECTIVE: VITAL SIGNS: Temperature 98.1, pulse 73, blood pressure 123/76, 97% oxygen saturation on room air. GENERAL: No acute distress. HEART: Regular rate and rhythm. LUNGS: Clear to auscultation bilaterally. ABDOMEN: Bowel sounds are present, soft, mild tenderness in the epigastrium, but no guarding or rebo und tenderness. EXTREMITIES: No peripheral edema. LABORATORY STUDIES: WBC 3.8, hemoglobin 10.8, platelets 328,000. Sodium 140, potassium 3.7, BUN les s than 4, creatinine 0.53, calcium 8.7, magnesium 1.7. ASSESSMENT AND PLAN: 1. Acute pancreatitis, secondary to alcohol. 2. Pancreatic pseudoaneurysm, status post recent coil embolization in [place]. 3. Chronic pancreatitis. The patient's labs and clinical parameters remain favorable. Awaiting further improvement of symptom s. Hopefully, she will be able to tolerate her dinner tonight. If she does well with this and okay with breakfast tomorrow, she could potentially be discharged from the hospital from a GI perspective.
[2018-05-21] MEDS: traZODone HCl 50 MG TAB PO PRN (20:22)
--- NOTE | 2018-05-21 23:07 | PDOC.PN ---
- Subjective Encounter Start Date: 05/21/18 Encounter Start Time: 19:00 Patient seen and examined for Acute Pancreatitis. Tolerating full liqd diet. No new complaints. No overnight events - Objective Resuscitation Status: Resuscitation Status FULL:Full Resuscitation MAR Reviewed: Yes Vital Signs & Weight: Vital Signs (12 hours) Temp Pulse Resp BP Pulse Ox 05/21/18 20:00 99.2 F 83 16 119/78 99 Weight Admit Weight 114 lb 15.89 oz Weight 114 lb 15.89 oz I&O: 05/20/18 05/21/18 05/22/18 06:59 06:59 06:59 Intake Total 1936 2700 720 Output Total 150 Balance 1936 2550 720 Result Diagrams: 05/21/18 04:05 05/21/18 04:05 Phys Exam - Physical Examination Constitutional: NAD Respiratory: no wheezing, no rhonchi Cardiovascular: RRR, no rub Gastrointestinal: soft, positive bowel sounds minimal epig tend Musculoskeletal: no edema Neurological: moves all 4 limbs Dx/Plan - Plan DVT proph w/SCDs IMPRESSION: 1. Acute alcoholic pancreatitis 2. Chronic Alcoholism 3. Anxiety/Depression 4. Hypothyroidism / Hypokalemia/Chronic Pancreatitis 5. Recent coil embolization for Pancreatic pseudoaneurysm PLAN: Advance to low fat diet Cont to monitor Cont current meds as below DC in AM if tolerating regular diet Review of Systems - Review of Systems Respiratory: negative: Cough, Dry, Shortness of Breath, Hemoptysis, SOB with Excertion, Pleuritic Pain, Sputum, Wheezing Cardiovascular: negative: chest pain, palpitations, orthopnea, paroxysmal nocturnal dyspnea, edema, light headedness, other Gastrointestinal: negative: Nausea, Vomiting, Abdominal Pain, Diarrhea, Constipation, Melena, Hematochezia, Other - Medications/Allergies Allergies/Adverse Reactions: Allergies Allergy/AdvReac Type Severity Reaction Status Date / Time No Known Allergies Allergy Verified 05/16/18 19:36 Medications: Current Medications Acetaminophen/Codeine Phosphate (Tylenol #3) 1 tab PO Q6H PRN PRN Reason: Moderate to Severe Pain (6-10) Last Admin: 05/20/18 16:20 Dose: 1 tab Albuterol Sulfate (Proventil Hfa) 2 puff INH Q4H PRN PRN Reason: SOB &/or Wheezing Enoxaparin Sodium (Lovenox) 40 mg SC 0900 [facility] Last Admin: 05/21/18 07:42 Dose: 40 mg Famotidine (Pepcid) 20 mg SLOW IVP Q12HR [facility] Last Admin: 05/21/18 20:23 Dose: 20 mg Folic Acid (Folvite) 1 mg PO DAILY [facility] Last Admin: 05/21/18 07:43 Dose: 1 mg Dextrose/Sodium Chloride (D5 0.9% Ns) 1,000 mls @ 100 mls/hr IV .Q10H [facility] Last Admin: 05/21/18 19:00 Dose: 1,000 mls Levothyroxine Sodium (Synthroid) 50 mcg PO 0600 [facility] Last Admin: 05/21/18 06:11 Dose: 50 mcg Morphine Sulfate (Morphine) 4 mg SLOW IVP Q4H PRN PRN Reason: Pain Last Admin: 05/21/18 20:22 Dose: 4 mg Ondansetron HCl (Zofran) 4 mg IVP Q6H PRN PRN Reason: Nausea/Vomiting Last Admin: 05/21/18 04:08 Dose: 4 mg Sodium Chloride (Flush - Normal Saline) 10 ml IVF PRN PRN PRN Reason: Saline Flush Last Admin: 05/20/18 13:31 Dose: 10 ml Thiamine HCl (Thiamine) 100 mg PO DAILY [facility] Last Admin: 05/21/18 07:43 Dose: 100 mg Trazodone HCl (Desyrel) 50 mg PO HS PRN PRN Reason: Insomnia Last Admin: 05/21/18 20:22 Dose: 50 mg Venlafaxine HCl (Effexor Xr) 75 mg PO DAILY [facility] Last Admin: 05/21/18 07:43 Dose: 75 mg Venlafaxine HCl (Effexor Xr) 150 mg PO DAILY [facility] Last Admin: 05/21/18 07:43 Dose: 150 mg
[2018-05-22] MEDS: Ondansetron HCl/PF 4 MG/2 ML Vial IVP PRN ×2 (01:47→15:08)
[2018-05-22] MEDS: Morphine 4 MG/ML VIAL SLOW IVP PRN ×3 (01:47→19:53)
[2018-05-22] MEDS: Dextrose 5 % And 0.9 % NaCl 1,000 ML IV SCH ×2 (04:55→15:09)
[2018-05-22] MEDS: Levothyroxine Sodium 50 MCG TAB PO SCH (04:55)
[2018-05-22] MEDS: Famotidine/PF 20 mg/2ml Vial SLOW IVP SCH ×2 (08:16→20:45)
[2018-05-22] MEDS: Venlafaxine HCl XR 75 MG CAP PO SCH (08:16)
[2018-05-22] MEDS: Venlafaxine HCl XR 150 MG CAP PO SCH (08:16)
[2018-05-22] MEDS: Folic Acid 1 MG TAB PO SCH (08:16)
--- NOTE | 2018-05-22 12:47 | PRG ---
DATE OF SERVICE: 05/22/2018 SUBJECTIVE: Ms. Steiner was feeling well last night, but this morning complains of continued poor appetite and mild nausea as well as continued upper abdominal discomfort. She has remained hemodynam ically stable. OBJECTIVE: VITAL SIGNS: Temperature 98.0, pulse 79, blood pressure 130/79, 97% oxygen saturation on room air. GENERAL: No acute distress. HEART: Regular rate and rhythm. LUNGS: Clear to auscultation bilaterally. ABDOMEN: Nondistended. Bowel sounds are present, soft, tender to palpation in the epigastrium and r ight upper quadrant, but no guarding or rebound tenderness. EXTREMITIES: No peripheral edema. ASSESSMENT AND PLAN: 1. Acute pancreatitis, secondary to alcohol. 2. Pancreatic pseudoaneurysm, status post recent coil embolization in [place]. 3. Chronic pancreatitis. The plan will be to keep her here in the hospital 1 more day with continued IV fluids. When she is f eeling up to it, she can advance her diet further. Supportive care will be continued. When she is d oing better from a symptomatic perspective, no other barrier to hospital discharge from a GI perspect angelia.
--- NOTE | 2018-05-22 22:27 | PDOC.PN ---
- Subjective Encounter Start Date: 05/22/18 Encounter Start Time: 13:00 Patient seen and examined for Pancreatitis. Feels gen weak with nausea. Epig pain gets worse after eating. No other complaints. No overnight events - Objective Resuscitation Status: Resuscitation Status FULL:Full Resuscitation MAR Reviewed: Yes Vital Signs & Weight: Vital Signs (12 hours) Temp Pulse Resp BP Pulse Ox 05/22/18 20:00 98.9 F 78 16 134/69 98 Weight Admit Weight 114 lb 15.89 oz Weight 114 lb 15.89 oz I&O: 05/21/18 05/22/18 05/23/18 06:59 06:59 06:59 Intake Total 2700 2200 480 Output Total 150 Balance 2550 2200 480 Result Diagrams: 05/21/18 04:05 05/21/18 04:05 Phys Exam - Physical Examination Constitutional: NAD Respiratory: no wheezing, no rhonchi Cardiovascular: RRR, no rub Gastrointestinal: soft, positive bowel sounds Epig tend + Musculoskeletal: no edema Neurological: moves all 4 limbs Psychiatric: A&O x 3 Dx/Plan - Plan DVT proph w/SCDs IMPRESSION: 1. Acute alcoholic pancreatitis 2. Chronic Alcoholism 3. Anxiety/Depression 4. Hypothyroidism / Hypokalemia/Chronic Pancreatitis 5. Recent coil embolization for Pancreatic pseudoaneurysm PLAN: Cont low fat diet Pain control Cont to monitor Cont current meds as below Review of Systems - Review of Systems Respiratory: negative: Cough, Dry, Shortness of Breath, Hemoptysis, SOB with Excertion, Pleuritic Pain, Sputum, Wheezing Cardiovascular: negative: chest pain, palpitations, orthopnea, paroxysmal nocturnal dyspnea, edema, light headedness, other - Medications/Allergies Allergies/Adverse Reactions: Allergies Allergy/AdvReac Type Severity Reaction Status Date / Time No Known Allergies Allergy Verified 05/16/18 19:36 Medications: Current Medications Acetaminophen/Codeine Phosphate (Tylenol #3) 1 tab PO Q6H PRN PRN Reason: Moderate to Severe Pain (6-10) Last Admin: 05/20/18 16:20 Dose: 1 tab Albuterol Sulfate (Proventil Hfa) 2 puff INH Q4H PRN PRN Reason: SOB &/or Wheezing Famotidine (Pepcid) 20 mg SLOW IVP Q12HR [facility] Last Admin: 05/22/18 20:45 Dose: 20 mg Folic Acid (Folvite) 1 mg PO DAILY [facility] Last Admin: 05/22/18 08:16 Dose: 1 mg Dextrose/Sodium Chloride (D5 0.9% Ns) 1,000 mls @ 100 mls/hr IV .Q10H [facility] Last Admin: 05/22/18 15:09 Dose: 1,000 mls Levothyroxine Sodium (Synthroid) 50 mcg PO 0600 [facility] Last Admin: 05/22/18 04:55 Dose: 50 mcg Morphine Sulfate (Morphine) 4 mg SLOW IVP Q4H PRN PRN Reason: Pain Last Admin: 05/22/18 19:53 Dose: 4 mg Ondansetron HCl (Zofran) 4 mg IVP Q6H PRN PRN Reason: Nausea/Vomiting Last Admin: 05/22/18 15:08 Dose: 4 mg Sodium Chloride (Flush - Normal Saline) 10 ml IVF PRN PRN PRN Reason: Saline Flush Last Admin: 05/22/18 01:52 Dose: 10 ml Thiamine HCl (Thiamine) 100 mg PO DAILY [facility] Last Admin: 05/22/18 08:16 Dose: 100 mg Trazodone HCl (Desyrel) 50 mg PO HS PRN PRN Reason: Insomnia Last Admin: 05/21/18 20:22 Dose: 50 mg Venlafaxine HCl (Effexor Xr) 75 mg PO DAILY [facility] Last Admin: 05/22/18 08:16 Dose: 75 mg Venlafaxine HCl (Effexor Xr) 150 mg PO DAILY [facility] Last Admin: 05/22/18 08:16 Dose: 150 mg
[2018-05-23] MEDS: Ondansetron HCl/PF 4 MG/2 ML Vial IVP PRN
[2018-05-23] MEDS: Morphine 4 MG/ML VIAL SLOW IVP PRN ×5 (05:28→19:55)
[2018-05-23] MEDS: Levothyroxine Sodium 50 MCG TAB PO SCH (05:29)
[2018-05-23] MEDS: Folic Acid 1 MG TAB PO SCH (08:29)
[2018-05-23] MEDS: Venlafaxine HCl XR 75 MG CAP PO SCH (08:29)
[2018-05-23] MEDS: Venlafaxine HCl XR 150 MG CAP PO SCH (08:29)
[2018-05-23] MEDS: Famotidine/PF 20 mg/2ml Vial SLOW IVP SCH ×2 (08:30→20:00)
[2018-05-23] MEDS: Dextrose 5 % And 0.9 % NaCl 1,000 ML IV SCH ×3 (09:57→19:54)
[2018-05-23] MEDS: traZODone HCl 50 MG TAB PO PRN (21:14)
[2018-05-23 23:22] VITALS: TEMP 98.1
--- NOTE | 2018-05-23 23:38 | PDOC.PN ---
- Subjective Encounter Start Date: 05/23/18 Encounter Start Time: 10:30 Patient seen and examined for Pancreatitis. Nausea with epig pain +. Unable to tolerate PO. No overnight events - Objective Resuscitation Status: Resuscitation Status FULL:Full Resuscitation MAR Reviewed: Yes Vital Signs & Weight: Vital Signs (12 hours) Temp Pulse Resp BP Pulse Ox 05/23/18 20:00 98.1 F 75 18 150/80 H 99 Weight Admit Weight 114 lb 15.89 oz Weight 114 lb 15.89 oz I&O: 05/22/18 05/23/18 05/24/18 06:59 06:59 06:59 Intake Total 2200 1720 720 Balance 2200 1720 720 Result Diagrams: 05/21/18 04:05 05/21/18 04:05 Phys Exam - Physical Examination Constitutional: NAD Respiratory: no wheezing, no rhonchi Cardiovascular: RRR, no rub Gastrointestinal: soft, positive bowel sounds Epig pain + Musculoskeletal: no edema Neurological: non-focal, moves all 4 limbs Dx/Plan - Plan DVT proph w/SCDs IMPRESSION: 1. Acute alcoholic pancreatitis 2. Chronic Alcoholism 3. Anxiety/Depression 4. Hypothyroidism / Hypokalemia/Chronic Pancreatitis 5. Recent coil embolization for Pancreatic pseudoaneurysm PLAN: Cont low fat diet as tolerated DC in AM if able to keep oral intake Pain control Cont to monitor Cont current meds as below Review of Systems - Review of Systems Respiratory: negative: Cough, Dry, Shortness of Breath, Hemoptysis, SOB with Excertion, Pleuritic Pain, Sputum, Wheezing Cardiovascular: negative: chest pain, palpitations, orthopnea, paroxysmal nocturnal dyspnea, edema, light headedness, other - Medications/Allergies Allergies/Adverse Reactions: Allergies Allergy/AdvReac Type Severity Reaction Status Date / Time No Known Allergies Allergy Verified 05/16/18 19:36 Medications: Current Medications Acetaminophen/Codeine Phosphate (Tylenol #3) 1 tab PO Q6H PRN PRN Reason: Moderate to Severe Pain (6-10) Last Admin: 05/20/18 16:20 Dose: 1 tab Albuterol Sulfate (Proventil Hfa) 2 puff INH Q4H PRN PRN Reason: SOB &/or Wheezing Famotidine (Pepcid) 20 mg SLOW IVP Q12HR [facility] Last Admin: 05/23/18 20:00 Dose: 20 mg Folic Acid (Folvite) 1 mg PO DAILY [facility] Last Admin: 05/23/18 08:29 Dose: 1 mg Dextrose/Sodium Chloride (D5 0.9% Ns) 1,000 mls @ 100 mls/hr IV .Q10H [facility] Last Admin: 05/23/18 19:54 Dose: 1,000 mls Levothyroxine Sodium (Synthroid) 50 mcg PO 0600 [facility] Last Admin: 05/23/18 05:29 Dose: 50 mcg Morphine Sulfate (Morphine) 4 mg SLOW IVP Q4H PRN PRN Reason: Pain Last Admin: 05/23/18 19:55 Dose: 4 mg Ondansetron HCl (Zofran) 4 mg IVP Q6H PRN PRN Reason: Nausea/Vomiting Last Admin: 05/23/18 00:00 Dose: 4 mg Sodium Chloride (Flush - Normal Saline) 10 ml IVF PRN PRN PRN Reason: Saline Flush Last Admin: 05/23/18 20:00 Dose: 10 ml Thiamine HCl (Thiamine) 100 mg PO DAILY [facility] Last Admin: 05/23/18 08:29 Dose: 100 mg Trazodone HCl (Desyrel) 50 mg PO HS PRN PRN Reason: Insomnia Last Admin: 05/23/18 21:14 Dose: 50 mg Venlafaxine HCl (Effexor Xr) 75 mg PO DAILY [facility] Last Admin: 05/23/18 08:29 Dose: 75 mg Venlafaxine HCl (Effexor Xr) 150 mg PO DAILY [facility] Last Admin: 05/23/18 08:29 Dose: 150 mg
[2018-05-24 04:24] VITALS: BP 102/67
[2018-05-24] MEDS: Levothyroxine Sodium 50 MCG TAB PO SCH (05:40)
[2018-05-24] MEDS: Dextrose 5 % And 0.9 % NaCl 1,000 ML IV SCH (05:42)
[2018-05-24] MEDS: Morphine 4 MG/ML VIAL SLOW IVP PRN ×3 (05:58→15:14)
[2018-05-24] MEDS: Folic Acid 1 MG TAB PO SCH (10:53)
[2018-05-24] MEDS: Famotidine/PF 20 mg/2ml Vial SLOW IVP SCH (10:53)
[2018-05-24] MEDS: Venlafaxine HCl XR 75 MG CAP PO SCH (10:54)
[2018-05-24] MEDS: Venlafaxine HCl XR 150 MG CAP PO SCH (10:54)
--- NOTE | 2018-05-24 18:11 | DIS ---
DATE OF DISCHARGE: 05/24/2018 DISCHARGE DISPOSITION: Home. FOLLOWUP: Follow up with primary care physician, Dr. Kesha Cr, in 1 week. Follow up with [facility], Dr. Dieter Russo, in 2-3 weeks. ALLERGIES: No known drug allergies. BRIEF HOSPITAL COURSE: The patient is a 62-year-old female with chronic pancreatitis, presented to [facility] with abdominal pain. Her workup was consistent with acute on chronic pancreatitis. Plea se refer to the history and physical for further details. The patient was admitted to the hospital with a diagnosis of acute pancreatitis. A CT scan of the ab domen and pelvis with contrast was consistent with evidence of acute pancreatitis at the pancreatic ead. She was kept n.p.o. She was started on IV fluids with pain medications. She was also evaluate d by Gastroenterology Service. She was started on liquid diet. Over the last 24 hours, the patient is able to tolerate a low-fat diet. FINAL DIAGNOSES: 1. Acute on chronic pancreatitis. 2. Chronic alcoholism. 3. Anxiety and depression. 4. Hypothyroidism. 5. Hypokalemia. 6. Recent coil embolization of the pancreatic pseudoaneurysm. 7. Chronic obstructive pulmonary disease/asthma. 8. Gastroesophageal reflux disease. 9. History of Sima thyroiditis. 10. Bipolar disorder. Plan of care was discussed with the patient in detail. She stated understanding.
== END 2018-05-24 16:28 | disposition home or self-care (01) | DRG 440 ==
LOC: ERS 13:09 → T4-B 15:23
PROVIDERS: ADMIT Internal Medicine; ATTEND Internal Medicine
DX: K85.20 Alcohol induced acute pancreatitis without necrosis or infection (principal); K86.0 Alcohol-induced chronic pancreatitis; F41.9 Anxiety disorder, unspecified; E03.9 Hypothyroidism, unspecified; E87.6 Hypokalemia; J44.9 Chronic obstructive pulmonary disease, unspecified; K21.9 Gastro-esophageal reflux disease without esophagitis; E06.3 Autoimmune thyroiditis; F31.9 Bipolar disorder, unspecified; F06.33 Mood disorder due to known physiological condition with manic features; M35.00 Sjogren syndrome, unspecified; K63.89 Other specified diseases of intestine; M32.9 Systemic lupus erythematosus, unspecified; M19.90 Unspecified osteoarthritis, unspecified site; I48.91 Unspecified atrial fibrillation; F10.10 Alcohol abuse, uncomplicated
CPT/HCPCS: 36415; 74177; 80048; 83735; 85025; 96361; 96374; J1650; J2270; J2405; J3480; S0028

== ENCOUNTER 2018-07-03 16:05 | Outpatient (CLI) | payer OTHER ==
--- NOTE | 2018-07-03 18:34 | RAD ---
CERVICAL SPINE THREE VIEWS: 07/03/18 COMPARISON: 04/19/18 HISTORY: Status post surgery. Persistent pain. FINDINGS: Redemonstration of an anterior fusion plate with transvertebral body screw at C5, C6 and C7. There do es appear to be some perihardware lucency involving the fusion hardware at C6 and C7. Stable disc pro sthesis at C5-6 and C6-7. Redemonstration of anterolisthesis of C3 upon C4 and C4 upon C5. Predental space is normal. Limited evaluation of the odontoid process on the open mouth projection. L ateral masses of C1 and C2 articulate appropriately. On the AP projection, there is evidence of facet hypertrophy. IMPRESSION: Possible loosening involving the cervical fusion hardware as described above. CT would be beneficial. POS: SAQIB
== END 2018-07-03 16:06 | disposition home or self-care (01) ==
LOC: TBSIIMAG 16:05
PROVIDERS: ATTEND Neurological Surgery
DX: M54.2 Cervicalgia (principal)
CPT/HCPCS: 72040

== ENCOUNTER 2018-07-19 01:51 | Inpatient (IN) | payer OTHER ==
[2018-07-19 02:17] VITALS: BMI 20.7
[2018-07-19] MEDS ORDERED: Acetaminophen 325 MG TAB PO PRN (02:45)
[2018-07-19] MEDS ORDERED: Ondansetron PF 4 MG/2 ML Vial IVP PRN (02:45)
[2018-07-19] MEDS ORDERED: traZODone HCl 50 MG TAB PO PRN (02:48)
[2018-07-19] MEDS ORDERED: PROVENTIL INHALER 6.7 G (200 INHALATIONS) INH PRN (02:48)
[2018-07-19] MEDS: Sodium Chloride 0.9% 1,000 ML IV SCH ×4 (02:58→23:58)
[2018-07-19] MEDS ORDERED: Vancomycin HCl 1 GM in Premix Bag 1 BAG IVPB SCH (03:00)
[2018-07-19 04:39] LABS: Anion Gap 9 mmol/L (10-20); BUN (Urea Nitrogen) 5 mg/dL (9.8-20.1); Calc. Creatinine Clearance 98 mL/min (70-130); Calcium 6.6 mg/dL (7.8-10.44); Carbon Dioxide 18 mmol/L (23-31); Chloride 116 mmol/L (98-107); Estimated GFR-MDRD Greater than 90; Glucose 221 mg/dL (80-115); Potassium 3.5 mmol/L (3.5-5.1); Sodium 139 mmol/L (136-145)
[2018-07-19 05:09] LABS: #Eosinphils 0.2 thou/uL (0.0-0.7); #Lymphocytes 0.6 thou/uL (1.20-3.40); #Monocytes 0.2 thou/uL (0.11-0.59); #Neutrophils 3.9 thou/uL (1.40-6.50); %Basophils 0.8 % (0.0-1.0); %Eosinophils 3.5 % (0.0-10.0); %Lymphocytes 11.5 % (21.0-51.0); %Monocytes 3.2 % (0.0-10.0); %Neutrophils 81.1 % (42.0-75.0); Hemoglobin 8.9 g/dL (12.0-16.0); Mean Corpuscular HGB CONC 32.2 g/dL (32.0-36.0); Mean Corpuscular Hemoglobin 34.1 pg (27.0-31.0); Mean Platelet Volume 7.7 fL (7.4-10.4); Platelet Count 266 thou/uL (130-400); Red Blood Cell (RBC) Count 2.62 mill/uL (4.20-5.40); White Blood Cell (WBC) Count 4.9 thou/uL (4.8-10.8)
[2018-07-19] MEDS: Levothyroxine Sodium 50 MCG TAB PO SCH (06:12)
--- NOTE | 2018-07-19 08:43 | HP ---
PRIMARY CARE PHYSICIAN: . TIME OF EVALUATION: 3:00 a.m. CODE STATUS: Full code. CHIEF COMPLAINT: Abdominal pain and dizziness. HISTORY OF PRESENT ILLNESS: This is a 62-year-old female patient with past medical history of alcohol abuse, quit 2 months ago. She reported she has been sober, also had a history of chronic pancreatitis, hypothyroidism, lupus, came to the hospital, transferred from [place] after having an episode of severe abdominal pain, with no clear triggers, no alleviating factors. The patient had a feeling that she was getting in on a relapse of the acute pancreatitis and that is what the reason she went to the ER, she was found to have mild elevation of the lipase, her symptoms were severe. The patient also developed severe hypotension with systolic in the 70s, this was sustained. The patient has reported that she usually have a low blood pressure but not this low, with the lowest numbers that she remember seems to be in the 100s. The symptoms have no clear triggers, no alleviating factors, symptoms are severe. The patient is symptomatic with a low blood pressure. The patient has a significant history of as she is tolerating blood pressures in the 70s, we will give another liter of normal saline. If not improving, we might need to put the patient in the ICU and consult Pulmonary for assisting with our patient. REVIEW OF SYSTEMS: CONSTITUTIONAL: No fever or chills, generalized weakness was reported positive. RESPIRATORY: No cough, sputum production, or shortness of breath. CARDIOVASCULAR: No chest pain or palpitation. GASTROINTESTINAL: The patient has nausea, no vomiting, no diarrhea. The patient reported severe abdominal pain, mostly epigastric and radiating to the lower abdomen. 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 GENITOURINARY: No burning on urination. EXTREMITIES: No leg swelling. All the other systems were reviewed and negative except for the findings mentioned above in the past medical history, positive for chronic pancreatitis, alcohol abuse, lupus, and Sjogren syndrome. FAMILY HISTORY: The patient reported father having Hodgkin lymphoma. Reviewed, noncontributory. SOCIAL HISTORY: The patient reported that she quit alcohol 2 months ago. No smoking, no drugs reported. PSYCH HISTORY: No previous psych history. CURRENT MEDICATIONS: Reviewed, noncontributory. ALLERGIES: NO KNOWN DRUG ALLERGIES. PHYSICAL EXAMINATION: VITAL SIGNS: On presentation, systolic blood pressure in the 70s and 80s here after arrival, heart rate was normal, respiratory rate within normal limits. GENERAL APPEARANCE: The patient is alert, oriented, not in any acute distress, becomes symptomatic when she stands up. HEENT: Dry oral mucosa, anicteric, no JVD. RESPIRATORY: Bilateral air entry. No rales. No wheezing. Symmetric expansion. CARDIOVASCULAR: Normal rate. Regular rhythm. No murmurs. No gallops. No edema, but she is hypotensive. ABDOMEN: Soft. Normal bowel sounds. Tenderness in the epigastrium. MUSCULOSKELETAL: Baseline range of motion and strength. No tenderness. SKIN: Warm and intact. No pallor, no rash, no redness. EXTREMITIES: Peripheral pulses are present. Capillary refill seems to be intact. NEUROLOGIC: No evidence of any new focal weakness, baseline speech. Cranial nerves seems to be intact. PSYCHIATRIC: The patient is in good mood. No anxiety. Oriented, optimal judgement. LABORATORY DATA AND IMAGING: EKG . No other significant abnormalities seen in the EKG. Chest x-ray was reviewed. There are no significant abnormalities seen on the chest x-ray. We will await for the official report from Radiology. Abdominal CT was reported to be positive for acute pancreatitis, no other significant findings were reported. White count 8.7, hemoglobin 11.2, MCV 102, platelet count 430. Sodium 142, potassium 3.5, chloride 109, carbon dioxide of 25, anion gap 12, BUN 7, creatinine 0.5. LFTs were negative. C-reactive protein was 0.5. Lipase 156. UA was reviewed and seems to be negative. ASSESSMENT AND PLAN: The patient was placed in the hospital with the following medical problems; Possible shock, systolic blood pressure in the 70s and 80s after 3 liters of bolus here in the ER. We will obtain more fluid resuscitation, but if she does not improve, we might need some vasopressors. The patient is still symptomatic, pending labs. The patient denies any history of having the blood pressure this low for any reason. We will consult Pulmonary for recommendations. 1. History of alcohol abuse. The patient is reported being sober for 2 months. She has been encouraged to continue the same. 2. Acute on chronic pancreatitis. Lipase is mildly elevated, likely due to lack of . We will hydrate, we will give pain medications as needed. 3. Possible underlying mass infection. The patient has a history of lupus. The patient is at high risk for complications from infection. We will start broad-spectrum antibiotics, obtain cultures, adjust medicine as necessary. 4. Deep venous thrombosis phyophylaxis. RISK ASSESSMENT: High risk due to severe hypotension with possible underlying infection. Job ID: [id number]
[2018-07-19] MEDS ORDERED: Ergocalciferol 1.25 MG(50,000 UNITS) CAP PO SCH (09:00)
[2018-07-19] MEDS: Venlafaxine HCl XR 75 MG CAP PO SCH (09:23)
[2018-07-19] MEDS: Acetaminophen/Codeine 30-300mg Tablet PO PRN ×2 (09:23→17:40)
[2018-07-19] MEDS: Venlafaxine HCl XR 150 MG CAP PO SCH (09:23)
[2018-07-19] MEDS: Multivitamin W/ Minerals 1 TAB PO SCH (09:23)
[2018-07-19] MEDS: Folic Acid 1 MG TAB PO SCH (09:24)
[2018-07-19] MEDS: Promethazine 25 MG TAB PO SCH (09:24)
[2018-07-19] MEDS: Mometasone Furoate 120 PUFF 220 MCG INH SCH ×2 (10:32→19:08)
[2018-07-19] MEDS: Vancomycin HCl 1 GM in Premix Bag 1 BAG IVPB SCH (15:36)
--- NOTE | 2018-07-19 16:44 | PDOC.PN ---
- Subjective Encounter Start Date: 07/19/18 Encounter Start Time: 16:35 Subjective: f/u for acute/chronic pancreatitis and abd pain tx with IVF's and NPO. -: Feels ok overall. No more pain. + BM's - Objective MAR Reviewed: Yes Vital Signs & Weight: Vital Signs (12 hours) Temp Pulse Resp BP Pulse Ox 07/19/18 15:10 99.2 F 79 16 135/81 97 07/19/18 10:00 98.4 F 73 16 110/66 96 07/19/18 06:45 98.0 F 80 18 122/70 94 L Weight Weight 117 lb I&O: 07/18/18 07/19/18 07/20/18 06:59 06:59 06:59 Intake Total 1550 Output Total 300 Balance 1250 Result Diagrams: 07/19/18 04:04 07/19/18 04:04 Additional Labs: Laboratory Tests 05/16/18 05/21/18 07/18/18 10:31 04:05 21:40 Hgb 10.8 L Lipase 217 H 156 H 07/18/18 21:40 Hgb 11.2 L Lipase Radiology Reviewed by me: Yes (CT abd/pel - inflammation of pancreatic head region, fatty liver) EKG Reviewed by me: Yes (Tele - SR) Phys Exam - Physical Examination Constitutional: NAD HEENT: PERRLA, sclera anicteric, oral pharynx no lesions Neck: no nodes, no JVD, supple, full ROM S1, S2 Cardiovascular: RRR, no significant murmur, no rub, gallop TTP in mid-epigastric region Gastrointestinal: soft, no distention, positive bowel sounds Musculoskeletal: no edema, pulses present Neurological: normal sensation, moves all 4 limbs Psychiatric: A&O x 3 Skin: normal turgor, cap refill <2 seconds Dx/Plan (1) Acute on chronic pancreatitis Code(s): K85.90 - ACUTE PANCREATITIS WITHOUT NECROSIS OR INFECTION, UNSP; K86.1 - OTHER CHRONIC PANCREATITIS Status: Acute Comment: Continue IVF's, serial abd exams, serial Lipase (2) ETOH abuse Code(s): F10.10 - ALCOHOL ABUSE, UNCOMPLICATED Status: Acute Comment: Folate /MVI, Ativan prn (3) Bipolar 1 disorder Code(s): F31.9 - BIPOLAR DISORDER, UNSPECIFIED Status: Chronic Comment: Continue Lamictal, Effexor, Trazadone (4) Hypothyroid Code(s): E03.9 - HYPOTHYROIDISM, UNSPECIFIED Status: Chronic Comment: Continue Levothyroxine 50mcg daily - Plan 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
[2018-07-19] MEDS ORDERED: lamoTRIgine 100 MG TAB PO SCH (21:00)
[2018-07-20] MEDS: Vancomycin HCl 1 GM in Premix Bag 1 BAG IVPB SCH (03:38)
[2018-07-20 05:56] LABS: Band 17 % (5-11); Eosinophils 1 % (0-10); Hemoglobin 8.9 g/dL (12.0-16.0); Lymphocytes 11 % (21-51); MDiff Complete? YES; Mean Corpuscular HGB CONC 32.6 g/dL (32.0-36.0); Mean Corpuscular Hemoglobin 34.1 pg (27.0-31.0); Mean Platelet Volume 7.7 fL (7.4-10.4); Monocytes 1 % (0-10); Neutrophil 70 % (42-75); Platelet Count 334 thou/uL (130-400); White Blood Cell (WBC) Count 6.6 thou/uL (4.8-10.8)
[2018-07-20 05:59] LABS: ALT (SGPT) 13 U/L (8-55); AST (SGOT) 24 U/L (5-34); Albumin 1.9 g/dL (3.4-4.8); Alkaline Phosphatase 111 U/L (40-150); Anion Gap 6 mmol/L (10-20); BUN (Urea Nitrogen) 4 mg/dL (9.8-20.1); Bilirubin, Total 0.3 mg/dL (0.2-1.2); Calc. Creatinine Clearance 95 mL/min (70-130); Calcium 7.4 mg/dL (7.8-10.44); Carbon Dioxide 21 mmol/L (23-31); Chloride 117 mmol/L (98-107); Estimated GFR-MDRD Greater than 90; Globulin 2.5 g/dL (2.4-3.5); Glucose 119 mg/dL (80-115); Lipase 366 U/L (8-78); Potassium 3.4 mmol/L (3.5-5.1); Protein, Total 4.4 g/dL (6.0-8.3); Sodium 141 mmol/L (136-145)
[2018-07-20] MEDS: Levothyroxine Sodium 50 MCG TAB PO SCH (07:06)
[2018-07-20] MEDS: Sodium Chloride 0.9% 1,000 ML IV SCH (07:17)
[2018-07-20] MEDS: Acetaminophen/Codeine 30-300mg Tablet PO PRN ×2 (07:20→12:44)
[2018-07-20] MEDS: Mometasone Furoate 120 PUFF 220 MCG INH SCH (07:50)
[2018-07-20] MEDS: Venlafaxine HCl XR 150 MG CAP PO SCH (09:00)
[2018-07-20] MEDS: Folic Acid 1 MG TAB PO SCH (09:00)
[2018-07-20] MEDS: Venlafaxine HCl XR 75 MG CAP PO SCH (09:00)
[2018-07-20] MEDS: Multivitamin W/ Minerals 1 TAB PO SCH (09:00)
[2018-07-20] MEDS: Promethazine 25 MG TAB PO SCH (09:00)
[2018-07-20 12:11] VITALS: BP 132/73; TEMP 98.2
--- NOTE | 2018-07-22 21:21 | DIS ---
DATE OF ADMISSION: 07/19/2018 DATE OF DISCHARGE: 07/20/2018 DISCHARGE DIAGNOSES: 1. Acute on chronic pancreatitis, improved. 2. Alcohol abuse. 3. Bipolar I disorder. 4. Hypothyroidism. 5. Abdominal pain secondary to #1, resolved. CONSULTATIONS: None. PERTINENT LAB AND X-RAY FINDINGS: Carbon dioxide level ranged between 18 and 21. Glucose ranged between 119 and 221. Calcium ranged between 6.6 and 7.4. LFTs within normal limits. Albumin 1.9. Lipase ranged between 156 and 366. CBC showed a hemoglobin of 8.9, MCV 104. CT of the abdomen and pelvis dated 07/18/2018 showed postoperative changes of the pancreatic head with stable-appearing cystic lesion. Thrombosed portion of pseudoaneurysm noted. Diffuse fatty liver changes. HOSPITAL COURSE: The patient was admitted after presenting with increasing abdominal pain and dizziness. History of alcohol abuse and chronic pancreatitis, status post embolization of the pancreatic head aneurysm. The patient was given general supportive management, IV fluids, and pain control. The patient did clinically improve with general supportive care with initial n.p.o. status advancing to clear liquids and finally full liquids by the time of discharge. Trending of lipase showed a range from 156 to 366; however, the patient's abdominal exam and clinical findings did not correlate with elevated lipase. The patient clinically improved and was essentially asymptomatic with a higher level of lipase at the time of discharge. Current recommendations are for a bland diet upon returning home. 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 I have examined the patient at the time of discharge and discussed followup instructions. The patient overall clinically is stable and ready for discharge on 07/20/2018. DISCHARGE MEDICATIONS: 1. Proventil HFA 2 puffs inhaled q.4 hours p.r.n. 2. Nexium 40 mg p.o. daily. 3. Folic acid 1 mg p.o. daily. 4. Lamictal 200 mg p.o. nightly. 5. Asmanex 220 mcg inhaled b.i.d. 6. Trazodone 50 mg 1 to 2 tabs p.o. nightly p.r.n. 7. Effexor XR 225 mg p.o. daily. 8. Tylenol No. 3 one tablet p.o. q.6 hours p.r.n. pain. 9. Vitamin D2, 50,000 units p.o. q.7 days. 10. Levothyroxine 50 mcg p.o. daily. 11. Multivitamin 1 tab p.o. daily. 12. Promethazine 12.5 mg p.o. daily p.r.n. FOLLOWUP: The patient may follow up with her primary care provider, Dr. Kesha Cr within 7 days of discharge. The patient may follow up with Dr. Dieter Russo with [facility] and to call his office for appointment time and date. CONDITION ON DISCHARGE: Stable. ACTIVITY: Ad pebbles. DIET: Regular with bland diet x72 hours. CODE STATUS: Full. DISPOSITION: Home on 07/20/2018. Job ID: [id number]
== END 2018-07-20 12:50 | disposition home or self-care (01) | DRG 440 ==
LOC: IMCU/EMU 01:54
PROVIDERS: ADMIT Hospitalist; ATTEND Hospitalist
DX: K85.90 Acute pancreatitis without necrosis or infection, unspecified (principal); F10.10 Alcohol abuse, uncomplicated; K86.1 Other chronic pancreatitis; E03.9 Hypothyroidism, unspecified; M32.9 Systemic lupus erythematosus, unspecified; F31.9 Bipolar disorder, unspecified; Z80.8 Family history of malignant neoplasm of other organs or systems
CPT/HCPCS: 36415; 80048; 80053; 83690; 85007; 85025; 85027; 87086; J3370